=== PATIENT | male | born 1940 | race Caucasian/White ===

== ENCOUNTER → 2016-12-13 | Outpatient (CLI) | payer MEDICARE, OTHER | END | disposition home or self-care (01) | LOC: LABWHC1 13:13 | PROVIDERS: ATTEND Psychiatry & Neurology Neurology | DX: G12.20 Motor neuron disease, unspecified (principal) | CPT/HCPCS: 36415; 84165 ==

== ENCOUNTER → 2017-01-18 | Outpatient (CLI) | payer MEDICARE, OTHER ==
--- NOTE | 2017-01-18 18:21 | XR ---
EXAMINATION TYPE: XR bone survey complete DATE OF EXAM: 01/18/2017 9:48 AM COMPARISON: NONE HISTORY: Monoclonal gammopathy TECHNIQUE: Multiple images were obtained. FINDINGS: Frontal chest: Pacemaker overlies left chest. Lung wang are clear. Ribs appear unremarkable. Lung f ields are clear. Cervical spine, 2 view: Degenerative disc changes are present C3-C4 C5-6. Prevertebral space is alyse l. Posterior spinal lamellar line is intact. Facet changes are present. Carotid bifurcation calcifica tion is noted. Right humerus: There is a sclerotic well marginated area within the proximal diaphysis. There is some areas of moth-eaten lytic areas within the proximal diaphysis and greater tuberosity of the right hu merus. Left humerus appears normal. 2 view skull: 2 lytic areas are within the left occipital region. An additional subtle parietal lucen cy may be within the midportion Thoracic spine: There are 12 thoracic type vertebral bodies. Pedicles are intact. Mild spondylosis w ithin the thoracic spine. Lumbar spine, 2 view: There 5 lumbar-type vertebral bodies. The pedicles are intact. Mild disc space narrowing is present L3-4 L4-5 posteriorly. Femurs: Femurs are examined in 2 views. No suspicious lytic or sclerotic lesions are evident. Joint s paces are preserved Pelvis: Single AP view pelvis is obtained which is unremarkable. IMPRESSION: 1. There are couple of suspicious lytic areas within the left occipital region. An additional area m ay be within the parietal bone on the lateral view skull. 2. Possible moth-eaten lytic area within the proximal diaphysis right humerus and humeral head.
== END | disposition home or self-care (01) ==
LOC: RADXRMAIN 09:03
PROVIDERS: ATTEND Internal Medicine Hematology & Oncology
DX: D47.2 Monoclonal gammopathy (principal); E78.5 Hyperlipidemia, unspecified; G12.21 Amyotrophic lateral sclerosis; I10 Essential (primary) hypertension
CPT/HCPCS: 77075

== ENCOUNTER 2019-02-21 09:35 | Emergency (ER) | payer MEDICARE, OTHER ==
--- NOTE | 2019-02-21 11:34 | ED ---
General Adult HPI - General Chief complaint: Syncope Stated complaint: syncope Time Seen by Provider: 02/21/19 10:52 Source: patient, RN notes reviewed Mode of arrival: wheelchair Limitations: no limitations - History of Present Illness Initial comments: Patient is a pleasant 78-year-old male presenting to the emergency Department with following an episode of falling. No injury occurred. Patient does not believe he lost consciousness. Patient states he was in the kitchen and turned around and started walking just dropped. Patient did have a similar episode years ago and was found to need a pacemaker that time. Patient is currently symptom-free. Patient has been diagnosed with Parkinson's and has recently seen a neurologist. 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 No headache or confusion. No isolated area of weakness. No chest pain or dyspnea. No abdomin al or back pain. - Related Data Home Medications Medication Instructions Recorded Confirmed Ascorbic Acid [Vitamin C] 1,000 mg PO DAILY 02/21/19 02/21/19 Carbidopa-Levodopa 25-100 mg 1.5 tab PO TID 02/21/19 02/21/19 [Sinemet 25-100] Donepezil HCl [Aricept] 10 mg PO DAILY 02/21/19 02/21/19 Metoprolol Succinate (ER) [Toprol 50 mg PO DAILY 02/21/19 02/21/19 Xl] Multivitamins, Thera [Multivitamin 1 tab PO DAILY 02/21/19 02/21/19 (formulary)] Riluzole [Rilutek] 100 mg PO DAILY 02/21/19 02/21/19 Simvastatin 40 mg PO DAILY 02/21/19 02/21/19 Tamsulosin HCl [Flomax] 0.4 mg PO DAILY 02/21/19 02/21/19 Allergies Allergy/AdvReac Type Severity Reaction Status Date / Time No Known Allergies Allergy Verified 02/21/19 11:14 Review of Systems ROS Statement: Those systems with pertinent positive or pertinent negative responses have been documented in the HPI. ROS Other: All systems not noted in ROS Statement are negative. Constitutional: Denies: fever Eyes: Denies: eye pain ENT: Denies: ear pain Respiratory: Denies: cough, dyspnea Cardiovascular: Denies: chest pain Endocrine: Denies: fatigue Gastrointestinal: Denies: abdominal pain Genitourinary: Denies: dysuria Musculoskeletal: Denies: back pain Skin: Denies: rash Neurological: Denies: headache, weakness, confusion Past Medical History Past Medical History: Hyperlipidemia, Hypertension Additional Past Medical History / Comment(s): PARKINSONS, ALS. History of Any Multi-Drug Resistant Organisms: None Reported Past Surgical History: Appendectomy, Cholecystectomy, Pacemaker Past Psychological History: No Psychological Hx Reported Smoking Status: Never smoker Past Alcohol Use History: Occasional Past Drug Use History: None Reported General Exam Limitations: no limitations General appearance: alert, in no apparent distress Head exam: Present: atraumatic, normocephalic Eye exam: Present: normal appearance, PERRL, EOMI. Absent: nystagmus ENT exam: Present: normal oropharynx Neck exam: Present: normal inspection. Absent: tenderness Respiratory exam: Present: normal lung sounds bilaterally Cardiovascular Exam: Present: regular rate, normal rhythm GI/Abdominal exam: Present: soft. Absent: tenderness Extremities exam: Present: normal inspection. Absent: pedal edema, calf tenderness Neurological exam: Present: alert, oriented X3, CN II-XII intact. Absent: motor sensory deficit Expanded Neurological exam: Present: protecting the airway Patient oriented to: Present: person, place, time Speech: Present: fluid speech Cranial nerves: EOM's Intact: Normal, Facial Sensation: Normal Sensory exam: Upper Extremity Light Touch: Normal, Lower Extremity Light Touch: Normal Motor strength exam: RUE: 5, LUE: 5, RLE: 5, LLE: 5 Eye Response: (4) open spontaneously Motor Response: (6) obeys commands Verbal Response: (5) oriented Psychiatric exam: Present: normal affect, normal mood Skin exam: Present: normal color Course Vital Signs 02/21/19 02/21/19 02/21/19 09:46 11:56 12:00 Temperature 98.2 F Pulse Rate 60 62 60 Respiratory 16 16 12 Rate Blood Pressure 92/57 O2 Sat by Pulse 98 Oximetry 02/21/19 02/21/19 13:00 14:00 Temperature Pulse Rate 60 60 Respiratory 16 15 Rate Blood Pressure 127/89 O2 Sat by Pulse Oximetry EKG Findings - EKG Comments: EKG Findings:: Paced rhythm at 60. MT 168. QRS 82. QT 416. QTc 416. Normal axis. Normal QRS. No acute ST change. Medical Decision Making - Medical Decision Making Patient reevaluated and resting comfortably in bed. Patient and family updated on results. Patient offered admission however patient and family both refuses. They state they do appointment next week with cardiology. They will keep. Patient also has an appointment with the neurologist and will bring a copy of the CD with him. - Lab Data Result diagrams: 02/21/19 11:11 02/21/19 11:11 Lab Results 02/21/19 02/21/19 02/21/19 Range/Units 11:11 11:11 11:11 WBC 7.3 (3.8-10.6) k/uL RBC 4.02 L (4.30-5.90) m/uL Hgb 12.8 L (13.0-17.5) gm/dL Hct 40.0 (39.0-53.0) % MCV 99.5 (80.0-100.0) fL MCH 31.7 (25.0-35.0) pg MCHC 31.9 (31.0-37.0) g/dL RDW 12.6 (11.5-15.5) % Plt Count 214 (150-450) k/uL Neutrophils % 52 % Lymphocytes % 39 % Monocytes % 5 % Eosinophils % 2 % Basophils % 1 % Neutrophils # 3.8 (1.3-7.7) k/uL Lymphocytes # 2.8 (1.0-4.8) k/uL Monocytes # 0.4 (0-1.0) k/uL Eosinophils # 0.1 (0-0.7) k/uL Basophils # 0.0 (0-0.2) k/uL PT 10.2 (9.0-12.0) sec INR 0.9 (<1.2) APTT 22.1 (22.0-30.0) sec Sodium 140 (137-145) mmol/L Potassium 4.1 (3.5-5.1) mmol/L Chloride 104 (98-107) mmol/L Carbon Dioxide 29 (22-30) mmol/L Anion Gap 7 mmol/L BUN 18 (9-20) mg/dL Creatinine 1.28 H (0.66-1.25) mg/dL Est GFR (CKD-EPI)AfAm 63 (>60 ml/min/1.73 sqM) Est GFR (CKD-EPI)NonAf 54 (>60 ml/min/1.73 sqM) Glucose 105 H (74-99) mg/dL Calcium 9.2 (8.4-10.2) mg/dL Total Bilirubin 0.5 (0.2-1.3) mg/dL AST 44 (17-59) U/L ALT 20 L (21-72) U/L Alkaline Phosphatase 60 (38-126) U/L Troponin I (0.000-0.034) ng/mL Total Protein 8.3 H (6.3-8.2) g/dL Albumin 4.3 (3.5-5.0) g/dL 02/21/19 Range/Units 11:11 WBC (3.8-10.6) k/uL RBC (4.30-5.90) m/uL Hgb (13.0-17.5) gm/dL Hct (39.0-53.0) % MCV (80.0-100.0) fL MCH (25.0-35.0) pg MCHC (31.0-37.0) g/dL RDW (11.5-15.5) % Plt Count (150-450) k/uL Neutrophils % % Lymphocytes % % Monocytes % % Eosinophils % % Basophils % % Neutrophils # (1.3-7.7) k/uL Lymphocytes # (1.0-4.8) k/uL Monocytes # (0-1.0) k/uL Eosinophils # (0-0.7) k/uL Basophils # (0-0.2) k/uL PT (9.0-12.0) sec INR (<1.2) APTT (22.0-30.0) sec Sodium (137-145) mmol/L Potassium (3.5-5.1) mmol/L Chloride (98-107) mmol/L Carbon Dioxide (22-30) mmol/L Anion Gap mmol/L BUN (9-20) mg/dL Creatinine (0.66-1.25) mg/dL Est GFR (CKD-EPI)AfAm (>60 ml/min/1.73 sqM) Est GFR (CKD-EPI)NonAf (>60 ml/min/1.73 sqM) Glucose (74-99) mg/dL Calcium (8.4-10.2) mg/dL Total Bilirubin (0.2-1.3) mg/dL AST (17-59) U/L ALT (21-72) U/L Alkaline Phosphatase (38-126) U/L Troponin I <0.012 (0.000-0.034) ng/mL Total Protein (6.3-8.2) g/dL Albumin (3.5-5.0) g/dL - Radiology Data Radiology results: report reviewed (Computed tomography scan of the brain reveals no acute process), image reviewed (This x-ray shows no acute process) Disposition Clinical Impression: Near syncope Disposition: HOME SELF-CARE Condition: Stable Instructions (If sedation given, give patient instructions): Near Syncope (ED) Additional Instructions: Please do follow-up with primary care physician in the next day or 2 for recheck. Return for increased falls, passing out, worsening or changing symptoms or other concerns. Is patient prescribed a controlled substance at d/c from ED?: No Referrals: Ben Arriaga III, MD [Primary Care Provider] - 1-2 days Time of Disposition: 15:17
[2019-02-21 11:55] LABS: Basophils % (A) 1 %; Eosinophils # (A) 0.1 k/uL (0-0.7); Eosinophils % (A) 2 %; HGB 12.8 gm/dL (13.0-17.5); Lymphocytes # (A) 2.8 k/uL (1.0-4.8); Lymphocytes % (A) 39 %; MCH 31.7 pg (25.0-35.0); MCHC 31.9 g/dL (31.0-37.0); MCV 99.5 fL (80.0-100.0); Monocytes # (A) 0.4 k/uL (0-1.0); Monocytes % (A) 5 %; Neutrophils # (A) 3.8 k/uL (1.3-7.7); Neutrophils % (A) 52 %; Platelet Count 214 k/uL (150-450); RBC 4.02 m/uL (4.30-5.90); RDW 12.6 % (11.5-15.5); WBC 7.3 k/uL (3.8-10.6)
[2019-02-21 12:14] LABS: INR 0.9 (<1.2); Partial Thromboplastin Time 22.1 sec (22.0-30.0); Prothrombin Time 10.2 sec (9.0-12.0)
[2019-02-21 12:15] LABS: Albumin 4.3 g/dL (3.5-5.0); Calcium 9.2 mg/dL (8.4-10.2); Potassium 4.1 mmol/L (3.5-5.1); Total Bilirubin 0.5 mg/dL (0.2-1.3); Total Protein 8.3 g/dL (6.3-8.2)
--- NOTE | 2019-02-21 12:31 | XR ---
EXAMINATION TYPE: XR chest 2V DATE OF EXAM: 02/21/2019 HISTORY: syncope. REFERENCE: NONE. FINDINGS: There is a bipolar pacemaker in place on the left. The lungs are clear. Pleural space are clear. The heart is not enlarged. IMPRESSION: NO ACTIVE INTRATHORACIC DISEASE.
--- NOTE | 2019-02-21 13:02 | CT ---
EXAMINATION TYPE: CT brain wo con DATE OF EXAM: 02/21/2019 COMPARISON: Previous study dated 03/21/2016 HISTORY: syncope CT DLP: 1108.4 mGycm Automated exposure control for dose reduction was used. FINDINGS: There are mild, generalized changes of sulcal prominence and ventriculomegaly, compatible with atroph ic change. There is diffuse periventricular white matter lucency, compatible with small vessel ischem ic change. There is no acute focal lesion, mass effect or midline shift identified. I do not see evid ence of intracranial blood. There is chronic mucoperiosteal thickening involving the left maxillary sinus as well as the ethmoid sinuses. The mastoids are clear. The bony calvarium is intact. IMPRESSION: 1. NO ACUTE INTRACRANIAL ABNORMALITY. 2. DEGENERATIVE CHANGE. 3. 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
[2019-02-21 15:27] VITALS: BP 164/93; PULSE 85; RESP 18; TEMP 97.6
== END 2019-02-21 15:27 | disposition home or self-care (01) ==
LOC: EC 09:35
DX: R55 Syncope and collapse (principal); E78.5 Hyperlipidemia, unspecified; I10 Essential (primary) hypertension; G20 Parkinson's disease; Z95.0 Presence of cardiac pacemaker; Z53.29 Procedure and treatment not carried out because of patient's decision for other reasons; Z53.8 Procedure and treatment not carried out for other reasons; Z79.899 Other long term (current) drug therapy
CPT/HCPCS: 36415; 70450; 71046; 80053; 84484; 85025; 85610; 85730; 93005; 99284

== ENCOUNTER 2019-12-15 06:57 | Inpatient (IN) | payer MEDICARE, OTHER ==
[2019-12-15] MEDS ORDERED: SODIUM CHLORIDE 0.9% 1,000 ML IV STA (07:33)
--- NOTE | 2019-12-15 07:38 | ED ---
Dizziness HPI - General Source: patient, EMS, RN notes reviewed, old records reviewed Mode of arrival: EMS Limitations: altered mental status <Sienna Hopkins - Last Filed: 12/15/19 09:24> <Jeronimo Gill - Last Filed: 12/15/19 11:12> - General Chief Complaint: Syncope Stated Complaint: AFIB, syncope Time Seen by Provider: 12/15/19 07:24 - History of Present Illness Initial Comments: This Patient is a 78-year-old male with a history of Parkinson's and ALS. He has history of a pacemaker as well. He presents today with his for multiple single episodes with standing, concern for some orthostatic hypotension. Patient's runs in bed today and he is a complaining of sense of chest pain. reports that he was white and diaphoretic. She called EMS for initially concern for low blood pressure. When EMS arrived blood pressure was normalized at 120/80 but was in Afib with heart rate between 120-140bpm. and EMS attempted to get the Patient out of bed and onto the stretcher he had a syncopal episode. He had no head injury or any injury related to the single episode with EMS there. Patient complains of no headache, he denies any chest pain or shortness of breath at this time. He states that he is just been generally weak. His reports that he does not drink fluids often. They also state that he is likely due for a battery replacement on his pacemaker. 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 reports that he has some dementia and delusions at times. (Sienna Hopkins) - Related Data Home Medications Medication Instructions Recorded Confirmed Carbidopa-Levodopa 25-100 mg 1 tab PO TID 02/21/19 12/15/19 [Sinemet 25-100] Donepezil HCl [Aricept] 10 mg PO DAILY 02/21/19 12/15/19 Metoprolol Succinate (ER) [Toprol 25 mg PO DAILY 02/21/19 12/15/19 Xl] Riluzole [Rilutek] 100 mg PO DAILY 02/21/19 12/15/19 Simvastatin 40 mg PO DAILY 02/21/19 12/15/19 Tamsulosin HCl [Flomax] 0.4 mg PO DAILY 02/21/19 12/15/19 Levothyroxine Sodium 25 mcg PO DAILY 12/15/19 12/15/19 Allergies Allergy/AdvReac Type Severity Reaction Status Date / Time No Known Allergies Allergy Verified 12/15/19 09:51 Review of Systems ROS Other: All systems not noted in ROS Statement are negative. <Oneyda Hopkinsily - Last Filed: 12/15/19 09:24> ROS Other: All systems not noted in ROS Statement are negative. <Jeronimo Gill - Last Filed: 12/15/19 11:12> ROS Statement: Those systems with pertinent positive or pertinent negative responses have been documented in the HPI. Past Medical History Past Medical History: Dementia, Hyperlipidemia, Hypertension Additional Past Medical History / Comment(s): PARKINSONS, ALS. History of Any Multi-Drug Resistant Organisms: None Reported Past Surgical History: Appendectomy, Cholecystectomy, Pacemaker Past Psychological History: No Psychological Hx Reported Smoking Status: Never smoker Past Alcohol Use History: Occasional Past Drug Use History: None Reported <Oneyda Hopkinsily - Last Filed: 12/15/19 09:24> General Exam Limitations: altered mental status General appearance: alert, in no apparent distress Head exam: Present: atraumatic, normocephalic, normal inspection Eye exam: Present: normal appearance, PERRL, EOMI. Absent: scleral icterus, conjunctival injection, periorbital swelling ENT exam: Present: normal exam, mucous membranes moist Neck exam: Present: normal inspection. Absent: tenderness, meningismus, lymphadenopathy Respiratory exam: Present: normal lung sounds bilaterally. Absent: respiratory distress, wheezes, rales, rhonchi, stridor Cardiovascular Exam: Present: regular rate, normal rhythm, normal heart sounds. Absent: systolic murmur, diastolic murmur, rubs, gallop, clicks GI/Abdominal exam: Present: soft, normal bowel sounds. Absent: distended, tenderness, guarding, rebound, rigid Extremities exam: Present: normal inspection, full ROM, normal capillary refill. Absent: tenderness, pedal edema, joint swelling, calf tenderness Back exam: Present: normal inspection Neurological exam: Present: alert, oriented X3, CN II-XII intact Psychiatric exam: Present: normal affect, normal mood Skin exam: Present: warm, dry, intact, normal color. Absent: rash <Oneyda Hopkinsily - Last Filed: 04/14/20 09:24> - General Exam Comments Initial Comments: 78-year-old male. Resting comfortably in bed. No Distress. (SandeepSienna) Course <Sienna Hopkins - Last Filed: 12/15/19 09:24> Vital Signs 12/15/19 12/15/19 12/15/19 06:59 07:30 08:00 Temperature 97.8 F Pulse Rate 71 71 65 Respiratory 18 18 18 Rate Blood Pressure 121/65 121/65 105/60 O2 Sat by Pulse 98 98 98 Oximetry 12/15/19 12/15/19 12/15/19 08:30 09:25 10:27 Temperature Pulse Rate 60 65 68 Respiratory 18 18 18 Rate Blood Pressure 116/61 106/62 114/64 O2 Sat by Pulse 99 99 98 Oximetry - Reevaluation(s) Reevaluation #1: 12/15/19 07:41 Pacemaker was interpreted. awaiting report. (SandeepSienna) EKG Findings - EKG Comments: EKG Findings:: EKG performed at 701 shows normal sinus rhythm and normal EKG. Ventricular rate of 60 beats were minute. ME interval is 134 ms. She alevism is 76 most seconds. QT QTc is 396/421 ms. <Sienna Hopkins - Last Filed: 12/15/19 09:24> Medical Decision Making - Lab Data Result diagrams: 12/15/19 07:10 12/15/19 07:10 - Radiology Data Radiology results: report reviewed <MonalisajuneSienna sanchez - Last Filed: 12/15/19 09:24> - Lab Data Result diagrams: 12/15/19 07:10 12/15/19 07:10 <Jeronimo Gill - Last Filed: 12/15/19 11:12> - Medical Decision Making 78-year-old male presents emergency department today with Elaine Leno syncopal episodes. He had a single episode this morning upon awakening and was diaphoretic and his heart rate was fluctuating. Patient does have a pacemaker and this was placed by Dr. Koo. At this time Patient denies any specific chest pain. His does report that he complained about chest pain earlier today. Patient's labwork was reviewed. Evidence of mildly elevated troponin of 0.056. We also had his pacemaker interpreted [employer]. This is placed on patient's file. At 4 AM there is noted to be a 2 hour and 40 minutes episode of high heart rates with the max being 192 bpm. Patient family was informed of these results and Patient was placed on heparin at this time. Patient's does note that she he does have a history of some dementia and occasional altered mental status and delusions consistent with his Parkinson's and ALS disease. Discussed case with Dr. Gill. (Sienna Hopkins) Patient reevaluated and reexamined by myself, Dr. Gill. Patient resting comfortably in bed, symptom-free at this time. Majority of history taken from spouse. Radial and pedal pulses 2/4 bilateral. Heart regular rate and rhythm without murmur. Patient and family are updated on results and plan. Dr. Sue has been paged for admission, covering for Dr. Arriaga. Cardiology will be placed on consult. I do agree with PAs findings. This includes diagnostic i nterpretation and treatment plan. Case was discussed with Dr. Sue, who will admit. (Jeronimo Gill) - Lab Data Lab Results 12/15/19 12/15/19 12/15/19 Range/Units 07:10 07:10 07:10 WBC 10.0 (3.8-10.6) k/uL RBC 3.66 L (4.30-5.90) m/uL Hgb 12.0 L (13.0-17.5) gm/dL Hct 36.0 L (39.0-53.0) % MCV 98.5 (80.0-100.0) fL MCH 32.7 (25.0-35.0) pg MCHC 33.2 (31.0-37.0) g/dL RDW 12.5 (11.5-15.5) % Plt Count 167 (150-450) k/uL Neutrophils % 83 % Lymphocytes % 13 % Monocytes % 3 % Eosinophils % 0 % Basophils % 0 % Neutrophils # 8.3 H (1.3-7.7) k/uL Lymphocytes # 1.3 (1.0-4.8) k/uL Monocytes # 0.3 (0-1.0) k/uL Eosinophils # 0.0 (0-0.7) k/uL Basophils # 0.0 (0-0.2) k/uL PT 10.2 (9.0-12.0) sec INR 1.0 (<1.2) APTT 20.8 L (22.0-30.0) sec D-Dimer 0.45 (<0.60) mg/L FEU Sodium 137 (137-145) mmol/L Potassium 4.5 (3.5-5.1) mmol/L Chloride 105 (98-107) mmol/L Carbon Dioxide 24 (22-30) mmol/L Anion Gap 8 mmol/L BUN 21 H (9-20) mg/dL Creatinine 1.24 (0.66-1.25) mg/dL Est GFR (CKD-EPI)AfAm 65 (>60 ml/min/1.73 sqM) Est GFR (CKD-EPI)NonAf 57 (>60 ml/min/1.73 sqM) Glucose 122 H (74-99) mg/dL Calcium 8.9 (8.4-10.2) mg/dL Magnesium 2.1 (1.6-2.3) mg/dL Total Bilirubin 1.0 (0.2-1.3) mg/dL AST 42 (17-59) U/L ALT 30 (4-49) U/L Alkaline Phosphatase 58 (38-126) U/L Troponin I (0.000-0.034) ng/mL Total Protein 8.1 (6.3-8.2) g/dL Albumin 4.0 (3.5-5.0) g/dL 12/15/19 Range/Units 07:10 WBC (3.8-10.6) k/uL RBC (4.30-5.90) m/uL Hgb (13.0-17.5) gm/dL Hct (39.0-53.0) % MCV (80.0-100.0) fL MCH (25.0-35.0) pg MCHC (31.0-37.0) g/dL RDW (11.5-15.5) % Plt Count (150-450) k/uL Neutrophils % % Lymphocytes % % Monocytes % % Eosinophils % % Basophils % % Neutrophils # (1.3-7.7) k/uL Lymphocytes # (1.0-4.8) k/uL Monocytes # (0-1.0) k/uL Eosinophils # (0-0.7) k/uL Basophils # (0-0.2) k/uL PT (9.0-12.0) sec INR (<1.2) APTT (22.0-30.0) sec D-Dimer (<0.60) mg/L FEU Sodium (137-145) mmol/L Potassium (3.5-5.1) mmol/L Chloride (98-107) mmol/L Carbon Dioxide (22-30) mmol/L Anion Gap mmol/L BUN (9-20) mg/dL Creatinine (0.66-1.25) mg/dL Est GFR (CKD-EPI)AfAm (>60 ml/min/1.73 sqM) Est GFR (CKD-EPI)NonAf (>60 ml/min/1.73 sqM) Glucose (74-99) mg/dL Calcium (8.4-10.2) mg/dL Magnesium (1.6-2.3) mg/dL Total Bilirubin (0.2-1.3) mg/dL AST (17-59) U/L ALT (4-49) U/L Alkaline Phosphatase (38-126) U/L Troponin I 0.057 H* (0.000-0.034) ng/mL Total Protein (6.3-8.2) g/dL Albumin (3.5-5.0) g/dL 12/15/19 09:26 Second tube EKG performed at 8:50 AM showed normal sinus rhythm and normal EKG. Ventricular rate of 63 beats were minute. Pulse 150 ms. Respirations 70 ms. QT QTc is 414/423 ms. (Sienna Hopkins) - Radiology Data Chest x-ray is negative for any acute cardiac pulmonary process. (Sienna Hopkins) Disposition Is patient prescribed a controlled substance at d/c from ED?: No Time of Disposition: 09:28 <Sienna Hopkins - Last Filed: 12/15/19 09:24> <Jeronimo Gill - Last Filed: 12/15/19 11:12> Clinical Impression: Syncope, Elevated troponin Disposition: HOME SELF-CARE Condition: Good Referrals: None,Stated [REFERRING] - 1-2 days
[2019-12-15] MEDS: SODIUM CHLORIDE 0.9% 1,000 ML IV STA ×2 (07:42→17:51)
[2019-12-15 07:54] LABS: Basophils % (A) 0 %; Eosinophils % (A) 0 %; Lymphocytes # (A) 1.3 k/uL (1.0-4.8); Lymphocytes % (A) 13 %; MCH 32.7 pg (25.0-35.0); MCHC 33.2 g/dL (31.0-37.0); MCV 98.5 fL (80.0-100.0); Mean Platelet Volume 8.9; Monocytes # (A) 0.3 k/uL (0-1.0); Monocytes % (A) 3 %; Neutrophils # (A) 8.3 k/uL (1.3-7.7); Neutrophils % (A) 83 %; Platelet Count 167 k/uL (150-450); RBC 3.66 m/uL (4.30-5.90); RDW 12.5 % (11.5-15.5)
--- NOTE | 2019-12-15 08:06 | XR ---
EXAMINATION TYPE: XR chest 2V DATE OF EXAM: 12/15/2019 COMPARISON: 02/19/2019 TECHNIQUE: PA and lateral views submitted. HISTORY: Syncope FINDINGS: The lungs are clear and there is no pneumothorax, pleural effusion, or focal pneumonia. Cardiac dev ice noted. No overt failure. Arthropathy of the shoulders. Hypertrophic and degenerative change of th e spine. Underlying COPD suggested. IMPRESSION: 1. No acute process.
[2019-12-15 08:09] LABS: Calcium 8.9 mg/dL (8.4-10.2); Magnesium 2.1 mg/dL (1.6-2.3); Total Protein 8.1 g/dL (6.3-8.2)
[2019-12-15 08:18] LABS: Potassium 4.5 mmol/L (3.5-5.1)
[2019-12-15 08:32] LABS: D-Dimer 0.45 mg/L FEU (<0.60); Partial Thromboplastin Time 20.8 sec (22.0-30.0); Prothrombin Time 10.2 sec (9.0-12.0)
[2019-12-15] MEDS ORDERED: ASPIRIN 81 MG PO STA (09:03)
[2019-12-15] MEDS ORDERED: MORPHINE SULFATE 4 MG/ML SYRINGE IV PRN (09:29)
[2019-12-15] MEDS ORDERED: HEPARIN SODIUM,PORCINE 5,000 UNIT/ML 1 ML VIAL IV ONE (09:29)
[2019-12-15] MEDS ORDERED: NITROGLYCERIN SL TABS 0.4 MG TAB SUBLINGUAL PRN (09:29)
[2019-12-15] MEDS: HEPARIN SOD,PORK IN 0.45% NACL 25,000 UNIT in 0.45% NACL 1 250ML.BAG IV SCH (10:23)
[2019-12-15 12:14] LABS: Appearance,Urine Clear (Clear); Bilirubin,Urine Negative (Negative); Blood,Urine Trace (Negative); Color,Urine Yellow; Glucose,Urine (UA) Negative (Negative); Hyaline Casts,Urine 7 /lpf (0-2); Ketones,Urine Trace (Negative); Leukocyte Esterase,Urine Negative (Negative); Mucus,Urine Moderate /hpf; Nitrite,Urine Negative (Negative); PH, Urine 5.5 (5.0-8.0); Protein,Urine Trace (Negative); RBC,Urine <1 /hpf (0-5); Specific Gravity,Urine 1.022 (1.001-1.035); Urobilinogen,Urine <2.0 mg/dL (<2.0); WBC,Urine 2 /hpf (0-5)
[2019-12-15] MEDS: CARBIDOPA-LEVODOPA 25-100 MG 1 EACH TAB PO SCH ×2 (13:49→17:49)
[2019-12-15] MEDS: LEVOTHYROXINE 25 MCG TAB PO SCH (13:49)
--- NOTE | 2019-12-15 14:47 | P.CRDCN ---
History of Present Illness Consult date: 12/15/19 Consult reason: sycope Chief complaint: Syncope History of present illness: This is a pleasant 78-year-old gentleman who follows with Dr. Lennon in the office. He has a known history of ALS, Parkinson's disease, sick sinus syndrome status post permanent pacemaker, hypertension, hyperlipidemia, dementia. The EMS notes were reviewed as was the EKG be performed by EMS which showed atrial fibrillation with a rapid ventricular response.. He has a visit with Dr. Koo's PA on December 03, was done via telemetry medicine because of the londono virus. Patient was instructed at that time to return in 3 months for an office visit and prior to that the device would be checked in 4 weeks to check the battery status of his pacemaker. His was also instructed that the patient had any dizziness or syncopal episodes related to low blood pressure that the dose of beta shy would be adjusted. Patient does present to the hospital on this occasion with multiple syncopal episodes of syncope while standing. On this occasion according to the documentation in the emergency room note, patient was complaining of some chest pain, he was white and diaphoretic. She called EMS with concern because the patient's blood pressure was low. When EMS arrived the blood pressure was normal at 120/80 but the patient went into atrial fibrillation with a heart rate of 120-140. At that time patient had no complaints of headache, no chest pain, no shortness of breath. Patient does state that he has intermittent dizzy spells and also states that he has not been drinking enough water at home. EMS notes were reviewed, as well as EKG performed by EMS which showed atrial fibrillation with rapid ventricular respo nse. On arrival here the patient's initial EKG showed a normal sinus rhythm with nonspecific ST-T wave changes in the anterior leads. The pacemaker was interrogated there were no device or lead performance issues observed. The battery status, estimated remaining longevity based on past history one month or less then 1-10 months. Patient did have 3 episodes of rapid atrial arrhythmias according to the device interrogation no significant pauses documented. Chest x-ray did not reveal any acute process. Blood pressure 116/70 with a heart rate in the 70s. Laboratory data was reviewed white blood cell count 10.0, hemoglobin 12.0, platelet count 167. D-dimer 0.45. Sodium 137, potassium 4.5, BUN 21, creatinine 1.2. And 2.1, troponin 0.057. At the time of my examination, patient is quite comfortable, he denies any dizziness or lightheadedness, no palpitations. He is very slow to speak, likely from the Parkinson's, but ultimately does answer his questions appropriately. Past Medical History Past Medical History: Dementia, Hyperlipidemia, Hypertension Additional Past Medical History / Comment(s): PARKINSONS, ALS. History of Any Multi-Drug Resistant Organisms: None Reported Past Surgical History: Appendectomy, Cholecystectomy, Pacemaker Type of Cardiac Device: Permanent Pacemaker, AICD Device Placement Date:: 2010 Past Psychological History: No Psychological Hx Reported Smoking Status: Never smoker Past Alcohol Use History: Occasional Past Drug Use History: None Reported - Past Family History Mother Family Medical History: Dementia Father Family Medical History: Dementia Medications and Allergies Home Medications Medication Instructions Recorded Confirmed Type Carbidopa-Levodopa 25-100 mg 1 tab PO TID 02/21/19 12/15/19 History [Sinemet 25-100] Donepezil HCl [Aricept] 10 mg PO DAILY 02/21/19 12/15/19 History Metoprolol Succinate (ER) [Toprol 25 mg PO DAILY 02/21/19 12/15/19 History Xl] Riluzole [Rilutek] 100 mg PO DAILY 02/21/19 12/15/19 History Simvastatin 40 mg PO DAILY 02/21/19 12/15/19 History Tamsulosin HCl [Flomax] 0.4 mg PO DAILY 02/21/19 12/15/19 History Levothyroxine Sodium 25 mcg PO DAILY 12/15/19 12/15/19 History Allergies Allergy/AdvReac Type Severity Reaction Status Date / Time No Known Allergies Allergy Verified 12/15/19 09:51 Physical Exam Vitals: Vital Signs Temp Pulse Resp BP Pulse Ox 12/15/19 13:05 98.0 F 70 16 115/65 98 12/15/19 11:55 97.9 F 65 18 110/63 98 12/15/19 11:30 67 18 97 12/15/19 11:00 63 18 116/68 98 12/15/19 10:30 63 18 114/64 97 12/15/19 10:27 68 18 114/64 98 12/15/19 10:00 64 18 106/60 98 12/15/19 09:30 61 18 106/62 97 12/15/19 09:25 65 18 106/62 99 12/15/19 09:00 63 18 109/56 98 12/15/19 08:30 60 18 116/61 99 12/15/19 08:00 65 18 105/60 98 12/15/19 07:30 71 18 121/65 98 12/15/19 06:59 97.8 F 71 18 121/65 98 Intake and Output 12/14/19 12/15/19 12/15/19 22:59 06:59 14:59 Other: # Voids 1 Weight 66.678 kg 66.678 kg PHYSICAL EXAMINATION: GENERAL: 78-year-old gentleman in no acute distress at the time of my examination HEENT: Head is atraumatic, normocephalic. Pupils equal, round. Sclera anicteric. Conjunctiva are clear. Mucous membranes of the mouth are moist. Neck is supple. There is no elevated jugular venous pressure. No carotid bruit is heard. HEART EXAMINATION: Heart S1, S2 normal. No murmur or gallop heard. CHEST EXAMINATION: Lungs are clear to auscultation and precussion. No chest wall tenderness is noted on palpation or with deep breathing. ABDOMEN: Soft, nontender. Bowel sounds are heard. No organomegaly noted. EXTREMITIES: 2+ peripheral pulses with no evidence of peripheral edema and no calf tenderness noted. NEUROLOGIC patient is awake, alert and oriented 2 . Speech is very delayed and slow . Results 12/16/19 05:19 12/16/19 05:19 Cardiac Enzymes 12/15/19 12/15/19 Range/Units 07:10 07:10 AST 42 (17-59) U/L Troponin I 0.057 H* (0.000-0.034) ng/mL Coagulation 12/15/19 Range/Units 07:10 PT 10.2 (9.0-12.0) sec APTT 20.8 L (22.0-30.0) sec CBC 12/15/19 Range/Units 07:10 WBC 10.0 (3.8-10.6) k/uL RBC 3.66 L (4.30-5.90) m/uL Hgb 12.0 L (13.0-17.5) gm/dL Hct 36.0 L (39.0-53.0) % Plt Count 167 (150-450) k/uL Comprehensive Metabolic Panel 12/15/19 Range/Units 07:10 Sodium 137 (137-145) mmol/L Potassium 4.5 (3.5-5.1) mmol/L Chloride 105 (98-107) mmol/L Carbon Dioxide 24 (22-30) mmol/L BUN 21 H (9-20) mg/dL Creatinine 1.24 (0.66-1.25) mg/dL Glucose 122 H (74-99) mg/dL Calcium 8.9 (8.4-10.2) mg/dL AST 42 (17-59) U/L ALT 30 (4-49) U/L Alkaline Phosphatase 58 (38-126) U/L Total Protein 8.1 (6.3-8.2) g/dL Albumin 4.0 (3.5-5.0) g/dL Current Medications Generic Name Dose Route Start Last Admin Trade Name Freq PRN Reason Stop Dose Admin Ascorbic Acid 1,000 mg 12/16/19 09:00 Vitamin C PO DAILY [facility] Aspirin 325 mg 12/16/19 09:00 Aspirin PO DAILY [facility] Atorvastatin Calcium 20 mg 12/16/19 09:00 Lipitor PO DAILY [facility] Carbidopa/Levodopa 1.5 each 12/15/19 12:30 12/15/19 13:49 Sinemet 25-100 PO 1.5 each AC-TID KANDACE Administration Donepezil HCl 10 mg 12/16/19 09:00 Aricept PO DAILY KANDACE Sodium Chloride 1,000 mls @ 75 mls/hr 12/15/19 07:33 12/15/19 07:42 Saline 0.9% IV 12/15/19 20:52 75 mls/hr .[id number] STA Administration Heparin Sodium/Sodium Chloride 250 mls @ 8.001 mls/hr 12/15/19 09:30 12/15/19 10:23 25,000 unit/ Sodium Chloride IV 12 units/kg/hr .Q24H KANDACE 8.001 mls/hr Administration Protocol 12 UNITS/KG/HR Levothyroxine Sodium 25 mcg 12/15/19 13:15 12/15/19 13:49 Synthroid PO 25 mcg DAILY@0630 KANDACE Administration Metoprolol Succinate 50 mg 12/16/19 09:00 Toprol Xl PO DAILY [facility] Morphine Sulfate 4 mg 12/15/19 09:29 Morphine Sulfate (Inj) IV Q5M PRN Chest Pain Multivitamins 1 each 12/16/19 09:00 Theragran PO DAILY KANDACE Nitroglycerin 0.4 mg 12/15/19 09:29 Nitrostat SUBLINGUAL Q5M PRN Chest Pain Riluzole [Rilutek] 100 mg 12/16/19 09:00 100 Mg PO DAILY KANDACE Tamsulosin HCl 0.4 mg 12/16/19 09:00 Flomax PO DAILY KANDACE Intake and Output 12/14/19 12/15/19 12/15/19 22:59 06:59 14:59 Other: # Voids 1 Weight 66.678 kg 66.678 kg Patient Weight 12/16/19 06:59 Weight 66.678 kg 12/15/19 07:10 12/15/19 07:10 EKG Interpretations (text) Initial EKG on presentation here shows a normal sinus rhythm with ST-T wave changes noted in the anterior leads Assessment and Plan Plan: Assessment and plan #1 syncope, rule out cardiac causes #2 sick sinus syndrome with prior pacemaker implantation. Patient's device was interrogated, shows that the patient's end-of-life for his device is within one month, it does not show any evidence of significant pauses, it did document 3 single episodes of atrial arrhythmias.] #3 atrial fibrillation, paroxysmal, and initial EKG performed by EMS shows atrial fibrillation with rapid ventricular response #4 hypertension #5 hyperlipidemia #6 Parkinson's #7 ALS #8 episode of chest discomfort, rule out acute coronary syndrome. Initial troponin 0.057. EKG shows normal sinus rhythm with ST-T wave changes noted in the anterior leads Plan We will obtain an echocardiogram with Doppler study as well as 2 subsequent t roponins. We will also check a d-dimer to rule out possibility of pulmonary embolism. Check orthostatic heart rate and blood pressure every shift. Continue to monitor the patient for any significant tachycardia or bradycardia arrhythmias. Decrease aspirin to 81 mg daily, decrease the dose of beta shy. IV hydration. Further recommendations to follow. DNP note has been reviewed, I agree with a documented findings and plan of care. Patient was seen and examined.
--- NOTE | 2019-12-15 14:59 | HP ---
HISTORY AND PHYSICAL DATE OF SERVICE: 12/15/2019 CHIEF COMPLAINT: Syncope and sweating. HISTORY OF PRESENT ILLNESS: This is a 78-year-old gentleman with a past medical history of multiple medical problems including dementia, hyperlipidemia, hypertension, history of Parkinson's, ALS, history of appendectomy, cholecystomy being followed by Dr. Arriaga in the outpatient setting was living with his . The saw the patient this morning and the patient was sweating. Patient was less responsive. The patient also complaining of some sense of chest pain. The blood pressure was found to be 60 systolic according to the and the patient taken to [facility] and was admitted for further evaluation and treatment. The heart rate was between 120 to 140. The patient also had pacemaker also. There is no history of fever, chills or rigors, loss of consciousness, seizures. PAST MEDICAL HISTORY: Dementia, hypertension, hyperlipidemia. PAST SURGICAL HISTORY: Appendectomy, cholecystectomy. MEDICATIONS: Prior to admission home medications are: 1. Flomax 0.4 daily. 2. Simvastatin 40 mg p.o. daily. 3. Riluzole 100 mg p.o. daily. 4. Toprol-XL 25 mg p.o. daily. 5. Levothyroxine 25 mcg p.o. daily. 6. Aricept 10 mg p.o. daily. 7. Sinemet 10/100 t.i.d. ALLERGIES: None family history of 2 strokes family. SOCIAL HISTORY: No history of smoking. Occasional alcohol intake. REVIEW OF SYSTEMS: ENT: No diminished vision. CARDIOVASCULAR SYSTEM: As mentioned earlier. GI: No nausea. : No dysuria. NERVOUS SYSTEM: As mentioned earlier. ALLERGY/IMMUNOLOGY: No asthma or hayfever. MUSCULOSKELETAL: As mentioned earlier. HEMATOLOGY: No anemia or hypothyroid: ENDOCRINE: Hypothyroidism. CONSTITUTIONAL: As mentioned earlier. PHYSICAL EXAMINATION: Alert and oriented x3, pulse 65, blood pressure 110/60, respiration 18, temp 97.2, pulse ox 98% on 2 L. HEENT: Normal, no JVD. NECK: Normal CARDIOVASCULAR: S1, S2 muffled. RESPIRATORY: Breath sounds diminished in the bases, a few scattered rhonchi, no crackles.. ABDOMEN: Soft, nontender. No mass palpable legs no edema. NERVOUS SYSTEM: Higher functions as mentioned earlier. Moves all 4 limbs WITH mild diffuse weakness lymphatics. SKIN: No ulcer, no ulcers. JOINTS: No active deforming arthropathy. LABS: WBC 10, hemoglobin is 12. INR is 1 and the BUN is 21, glucose 22, and troponin 0.057. ASSESSMENT: 1. Syncope, hypotension for evaluation, rule out cardiac arrhythmia. 2. Troponin 0.057. Possible acute rcc-QO-hyoxngg-elevation myocardial infarction. 3. Anemia, normocytic anemia of chronic disease. 4. History of ALS. 5. History of Parkinson's. 6. Hypertension. 7. Hyperlipidemia. 8. Appendectomy. 9. Cholecystectomy. 10.Pacemaker. RECOMMENDATION AN DISCUSSION: In this 78-year-old gentleman who presented with multiple complex medications. We will monitor the patient closely, continue with the current management and otherwise resume the home medications. Rule out myocardial infarction, unstable angina protocol, IV fluids. Monitor blood pressure closely. Hold of antihypertensive medications, cardiology consultation, a 2D echo with Doppler. Guarded prognosis because of multiple complex medical issues. A copy of this forwarded to Dr. Arriaga who is the primary physician. MMSAMANTHAL / DANILON: [id number] /
[2019-12-15 16:23] LABS: D-Dimer 0.25 mg/L FEU (<0.60); Partial Thromboplastin Time 92.5 sec (22.0-30.0)
--- NOTE | 2019-12-15 17:54 | ECHOF ---
Referral Reason:mi?? MEASUREMENTS -------- HEIGHT: 167.6 cm WEIGHT: 66.7 kg BP: 115/65 IVSd: 1.2 cm (0.6 - 1.1) LVIDd: 3.2 cm (3.9 - 5.3) LVPWd: 1.2 cm (0.6 - 1.1) IVSs: 1.5 cm LVIDs: 1.8 cm LVPWs: 1.7 cm LAESV Index (A-L): 25.46 ml/m Ao Diam: 3.1 cm (2.0 - 3.7) AV Cusp: 2.2 cm (1.5 - 2.6) MV EXCURSION: 18.221 mm (> 18.000) MV EF SLOPE: 76 mm/s (70 - 150) EPSS: 0.2 cm MV E Harmeet: 0.82 m/s MV DecT: 242 ms MV A Harmeet: 0.63 m/s MV E/A Ratio: 1.29 AR PHT: 1455 ms RAP: 5.00 mmHg RVSP: 29.77 mmHg FINDINGS -------- Sinus rhythm. Pacerwire seen in RV and RA. This was a technically adequate study. The left ventricular size is normal. There is mild concentric left ventricular hypertrophy. Overa ll left ventricular systolic function is normal with, an EF between 55 - 60 %. The diastolic fillin g pattern is normal for the age of the patient 10.32. The right ventricle is normal in size. Normal LA size by volume 22+/-6 ml/m2. The right atrial size is normal. Interatrial and interventricular septum intact. There is mild to moderate aortic valve sclerosis. There is mild aortic regurgitation. There is no evidence of aortic stenosis. The mitral valve leaflets are mildly thickened. Mild mitral regurgitation is present. Mild tricuspid regurgitation present. There is no evidence of pulmonary hypertension. The right v entricular systolic pressure, as measured by Doppler, is 29.77mmHg. There is no pulmonic regurgitation present. The aortic root size is normal. IVC Not well visulized. There is no pericardial effusion. CONCLUSIONS -------- 1. Pacerwire seen in RV and RA. 2. There is mild concentric left ventricular hypertrophy. 3. Overall left ventricular systolic function is normal with, an EF between 55 - 60 %. 4. The diastolic filling pattern is normal for the age of the patient 10.32 5. Normal LA size by volume 22+/-6 ml/m2. 6. There is mild to moderate aortic valve sclerosis. 7. There is mild aortic regurgitation. 8. Mild mitral regurgitation is present. 9. Mild tricuspid regurgitation present. 10. There is no evidence of pulmonary hypertension. RISK INTERN: Torrie Chavez RDCS
[2019-12-16 04:09] VITALS: RESP 16
[2019-12-16 06:40] LABS: Basophils % (A) 0 %; Eosinophils # (A) 0.1 k/uL (0-0.7); Eosinophils % (A) 1 %; HCT 30.7 % (39.0-53.0); Lymphocytes # (A) 1.9 k/uL (1.0-4.8); Lymphocytes % (A) 32 %; MCH 32.8 pg (25.0-35.0); MCHC 32.6 g/dL (31.0-37.0); MCV 100.6 fL (80.0-100.0); Mean Platelet Volume 8.6; Monocytes # (A) 0.3 k/uL (0-1.0); Monocytes % (A) 5 %; Neutrophils # (A) 3.8 k/uL (1.3-7.7); Neutrophils % (A) 62 %; Platelet Count 132 k/uL (150-450); RBC 3.06 m/uL (4.30-5.90); RDW 12.4 % (11.5-15.5); WBC 6.1 k/uL (3.8-10.6)
[2019-12-16 06:45] LABS: Calcium 8.4 mg/dL (8.4-10.2); Potassium 4.1 mmol/L (3.5-5.1)
[2019-12-16] MEDS: CARBIDOPA-LEVODOPA 25-100 MG 1 EACH TAB PO SCH ×3 (06:45→16:47)
[2019-12-16] MEDS: LEVOTHYROXINE 25 MCG TAB PO SCH (06:45)
[2019-12-16] MEDS ORDERED: SODIUM CHLORIDE 0.9% 1,000 ML in EMPTY BAG 1 BAG IV ONE (08:48)
[2019-12-16] MEDS ORDERED: ALPRAZolam 0.25 MG TAB PO PRN (08:48)
[2019-12-16] MEDS ORDERED: ALPRAZolam 0.5 MG TAB PO PRN (08:48)
[2019-12-16] MEDS ORDERED: ASPIRIN 325 MG TAB PO STA (08:48)
[2019-12-16] MEDS ORDERED: ATORVASTATIN 80 MG TAB PO STA (08:48)
[2019-12-16] MEDS ORDERED: NITROGLYCERIN SL TABS 0.4 MG TAB SUBLINGUAL PRN (08:48)
[2019-12-16] MEDS ORDERED: ASPIRIN 325 MG TAB PO SCH (09:00)
[2019-12-16] MEDS ORDERED: METOPROLOL SUCCINATE (ER) 50 MG TAB.ER.24H PO SCH (09:00)
[2019-12-16] MEDS ORDERED: ATORVASTATIN 20 MG TAB PO SCH (09:00)
[2019-12-16] MEDS: METOPROLOL SUCCINATE (ER) 25 MG TAB.ER.24H PO SCH (09:16)
[2019-12-16] MEDS: DONEPEZIL 10 MG TAB PO SCH (09:16)
[2019-12-16] MEDS: ASCORBIC ACID 500 MG TAB PO SCH (09:16)
[2019-12-16] MEDS: MULTIVITAMINS, THERA 1 EACH TAB PO SCH (09:17)
[2019-12-16] MEDS: TAMSULOSIN 0.4 MG CAP.ER.24H PO SCH (09:17)
[2019-12-16] MEDS ORDERED: VERAPAMIL 2.5 MG/ML 2 ML AMP ONE (10:41)
[2019-12-16] MEDS ORDERED: LIDOCAINE 1% INJ 10MG/ML (20 ML MDV) ONE (10:41)
[2019-12-16] MEDS ORDERED: HEPARIN SODIUM 1,000 UN/ML (10ML VL) ONE (10:52)
[2019-12-16] MEDS ORDERED: LIDOCAINE 1% INJ 10MG/ML (20 ML MDV) SQ ONE (10:57)
[2019-12-16] MEDS ORDERED: MIDAZOLAM 2 MG/2 ML VIAL IV ONE (10:58)
[2019-12-16] MEDS: VERAPAMIL SYRINGE (5 MG/10 ML) INTRAARTER ONE ×2 (10:58→11:30)
[2019-12-16] MEDS ORDERED: HEPARIN SODIUM 1,000 UN/ML (10ML VL) IV ONE ×2 (10:59)
[2019-12-16] MEDS: HEPARIN SOD,PORK IN 0.45% NACL 25,000 UNIT in 0.45% NACL 1 250ML.BAG IV SCH (10:59)
[2019-12-16] MEDS ORDERED: IV FLUID CONTINUATION 1,000 ML IV ONE (11:00)
[2019-12-16] MEDS ORDERED: BIVALIRUDIN BOLUS 250 MG/50 ML IV ONE (11:17)
[2019-12-16] MEDS ORDERED: BIVALIRUDIN 250 MG in SODIUM CHLORIDE 0.9% 50 ML IV ONE (11:18)
[2019-12-16] MEDS ORDERED: IOPAMIDOL-370 100ML BTL INJ ONE (11:22)
[2019-12-16] MEDS ORDERED: NITROGLYCERIN 1000MCG/10ML SYRINGE INTRACORON ONE (11:25)
[2019-12-16] MEDS ORDERED: CLOPIDOGREL 75 MG TAB ONE (11:30)
[2019-12-16] MEDS ORDERED: CLOPIDOGREL 75 MG TAB PO ONE (11:31)
[2019-12-16] MEDS ORDERED: IOPAMIDOL-370 50ML BTL INJ ONE (11:31)
--- NOTE | 2019-12-16 11:32 | P.PN ---
Subjective Progress Note Date: 12/16/19 This is a pleasant 78-year-old gentleman who follows with Dr. Lennon in the office. He has a known history of ALS, Parkinson's disease, sick sinus syndrome status post permanent pacemaker, hypertension, hyperlipidemia, dementia. The EMS notes were reviewed as was the EKG be performed by EMS which showed atrial fibrillation with a rapid ventricular response.. He has a visit with Dr. Koo's PA on December 03, was done via telemetry medicine because of the londono virus. Patient was instructed at that time to return in 3 months for an office visit and prior to that the device would be checked in 4 weeks to check the battery status of his pacemaker. His was also instructed that th e patient had any dizziness or syncopal episodes related to low blood pressure that the dose of beta shy would be adjusted. Patient does present to the hospital on this occasion with multiple syncopal episodes of syncope while standing. On this occasion according to the documentation in the emergency room note, patient was complaining of some chest pain, he was white and diaphoretic. She called EMS with concern because the patient's blood pressure was low. When EMS arrived the blood pressure was normal at 120/80 but the patient went into atrial fibrillation with a heart rate of 120-140. At that time patient had no complaints of headache, no chest pain, no shortness of breath. Patient does state that he has intermittent dizzy spells and also states that he has not been drinking enough water at home. EMS notes were reviewed, as well as EKG performed by EMS which showed atrial fibrillation with rapid ventricular response. On arrival here the patient's initial EKG showed a normal sinus rhythm with nonspecific ST-T wave changes in the anterior leads. The pacemaker was interrogated there were no device or lead performance issues observed. The battery status, estimated remaining longevity based on past history one month or less then 1-10 months. Patient did have 3 episodes of rapid atrial arrhythmias according to the device interrogation no significant pauses documented. Chest x-ray did not reveal any acute process. Blood pressure 116/70 with a heart rate in the 70s. Laboratory data was reviewed white blood cell count 10.0, hemoglobin 12.0, platelet count 167. D-dimer 0.45. Sodium 137, potassium 4.5, BUN 21, creatinine 1.2. And 2.1, troponin 0.057. At the time of my examination, patient is quite comfortable, he denies any dizziness or lightheadedness, no palpitations. He is very slow to speak, likely from the Parkinson's, but ultimately does answer his questions appropriately. 12/16/2019 Patient seen and examined this morning, complaining of some tightness and pressure in the chest this morning. Laboratory data, subsequent troponin 1.32 and 1.34, hemoglobin 10.0 today, platelet count 132. Sodium 137, potassium 4.1, BUN [address] Samayoa did go into see the patient this morning and recommended that he undergo cardiac catheterization today. The risks and the benefits were explained to the patient in detail. I also called his at home and explained that Dr. Zachary Samayoa was recommending he undergo cardiac catheterization. Objective - Vital Signs Vital signs: Vital Signs Temp 98.0 F 12/16/19 09:14 Pulse 62 12/16/19 09:14 Resp 16 12/16/19 09:25 BP 106/57 12/16/19 09:14 Pulse Ox 98 12/16/19 09:14 Intake & Output 12/15/19 12/16/19 12/16/19 18:59 06:59 18:59 Intake Total 58.541 240 360.467 Balance 58.541 240 360.467 Weight 66.678 kg 66 kg Intake: IV 10 Invasive Line 1 10 Intake, IV Titration 58.541 110.467 Amount Heparin Sod,Pork in 0.45% 58.541 110.467 NaCl 25,000 unit In 0.45 % NaCl 1 250ml.bag @ 12 UNITS/KG/HR 8.001 mls/hr IV .Q24H [facility] Rx#: [id number] Oral 240 240 Other: Voiding Method Diaper Diaper Incontinent Incontinent # Voids 1 2 - Exam PHYSICAL EXAMINATION: GENERAL: 78-year-old gentleman in no acute distress at the time of my examination HEENT: Head is atraumatic, normocephalic. Pupils equal, round. Sclera anicteric. Conjunctiva are clear. Mucous membranes of the mouth are moist. Neck is supple. There is no elevated jugular venous pressure. No carotid bruit is heard. HEART EXAMINATION: Heart S1, S2 normal. No murmur or gallop heard. CHEST EXAMINATION: Lungs are clear to auscultation and precussion. No chest wall tenderness is noted on palpation or with deep breathing. ABDOMEN: Soft, nontender. Bowel sounds are heard. No organomegaly noted. EXTREMITIES: 2+ peripheral pulses with no evidence of peripheral edema and no calf tenderness noted. NEUROLOGIC patient is awake, alert and oriented 2 . Speech is very delayed and slow . - Labs CBC & Chem 7: 12/16/19 05:19 12/16/19 05:19 Labs: Abnormal Lab Results - Last 24 Hours (Table) 12/15/19 12/15/19 12/15/19 Range/Units 11:52 14:30 15:39 RBC (4.30-5.90) m/uL Hgb (13.0-17.5) gm/dL Hct (39.0-53.0) % MCV (80.0-100.0) fL Plt Count (150-450) k/uL APTT 92.5 H (22.0-30.0) sec Chloride (98-107) mmol/L Carbon Dioxide (22-30) mmol/L Troponin I 1.320 H* (0.000-0.034) ng/mL HDL Cholesterol (40-60) mg/dL Urine Protein Trace H (Negative) Urine Ketones Trace H (Negative) Urine Blood Trace H (Negative) Hyaline Casts 7 H (0-2) /lpf Urine Mucus Moderate H (None) /hpf 12/15/19 12/15/19 12/16/19 Range/Units 19:22 23:35 05:19 RBC (4.30-5.90) m/uL Hgb (13.0-17.5) gm/dL Hct (39.0-53.0) % MCV (80.0-100.0) fL Plt Count (150-450) k/uL APTT 58.9 H (22.0-30.0) sec Chloride 112 H (98-107) mmol/L Carbon Dioxide 21 L (22-30) mmol/L Troponin I 1.340 H* (0.000-0.034) ng/mL HDL Cholesterol 62 H (40-60) mg/dL Urine Protein (Negative) Urine Ketones (Negative) Urine Blood (Negative) Hyaline Casts (0-2) /lpf Urine Mucus (None) /hpf 12/16/19 12/16/19 Range/Units 05:19 05:19 RBC 3.06 L (4.30-5.90) m/uL Hgb 10.0 L D (13.0-17.5) gm/dL Hct 30.7 L (39.0-53.0) % MCV 100.6 H (80.0-100.0) fL Plt Count 132 L (150-450) k/uL APTT 57.3 H (22.0-30.0) sec Chloride (98-107) mmol/L Carbon Dioxide (22-30) mmol/L Troponin I (0.000-0.034) ng/mL HDL Cholesterol (40-60) mg/dL Urine Protein (Negative) Urine Ketones (Negative) Urine Blood (Negative) Hyaline Casts (0-2) /lpf Urine Mucus (None) /hpf Assessment and Plan Plan: Assessment and plan #1 syncope, rule out cardiac causes #2 sick sinus syndrome with prior pacemaker implantation. Patient's device was interrogated, shows that the patient's end-of-life for his device is within one month, it does not show any evidence of significant pauses, it did document 3 single episodes of atrial arrhythmias.] #3 atrial fibrillation, paroxysmal, and initial EKG performed by EMS shows atrial fibrillation with rapid ventricular response #4 hypertension #5 hyperlipidemia #6 Parkinson's #7 ALS #8 episode of chest discomfort, troponins on an upward trend, 1.3 this morning. Echo revealed a normal left ventricular systolic function Plan Patient was recommended this morning by Dr. Zachary Samayoa to undergo cardiac catheterization, the risks and benefits were explained to the patient in detail and he was willing to proceed. This was also discussed with his who is aware that the procedure is being done today. DNP note has been reviewed, I agree with a documented findings and plan of care. Patient was seen and examined.
[2019-12-16] MEDS ORDERED: MAG HYDROX/AL HYDROX/SIMETH 30 ML CUP PO PRN (11:39)
[2019-12-16] MEDS ORDERED: ZOLPIDEM 5 MG TAB PO PRN (11:39)
[2019-12-16] MEDS ORDERED: ATROPINE SULFATE 0.1 MG/ML 10ML SYRINGE IV PRN (11:39)
[2019-12-16] MEDS ORDERED: RX INFO: IV CONTRAST WAS GIVEN 1 EACH MISC MISCELLANE PRN (11:39)
--- NOTE | 2019-12-16 12:08 | P.PN ---
Subjective 79-year-old pleasant gentleman was admitted for acute non-ST elevation microinfarction patient underwent cardiac catheterization and stenting to distal circumflex. Patient does have other multiple medical problems including possible amyotrophic lateral sclerosis and Parkinson's. Constitutional: Denied any fatigue denied any fever. Cardio vascular: denied any chest pain, palpitations Gastrointestinal denied any nausea vomiting Pulmonary: Denied any shortness of breath cough Neurologic denied any new focal deficits All inpatient medications were reviewed and appropriate changes in these medications as dictated in the interval history and assessment and plan. Objective - Vital Signs Vital signs: Vital Signs Temp 98.0 F 12/16/19 09:14 Pulse 62 12/16/19 09:14 Resp 16 12/16/19 09:25 BP 106/57 12/16/19 09:14 Pulse Ox 98 12/16/19 09:14 Intake & Output 12/15/19 12/16/19 12/16/19 18:59 06:59 18:59 Intake Total 58.541 240 480.087 Balance 58.541 240 480.087 Weight 66.678 kg 66 kg Intake: IV 129.62 Invasive Line 1 10 Intake, IV Titration 58.541 110.467 Amount Heparin Sod,Pork in 0.45% 58.541 110.467 NaCl 25,000 unit In 0.45 % NaCl 1 250ml.bag @ 12 UNITS/KG/HR 8.001 mls/hr IV .Q24H COUNT INCLUDES THE [facility] Rx#: [id number] Oral 240 240 Other: Voiding Method Diaper Diaper Incontinent Incontinent # Voids 1 2 - Exam PHYSICAL EXAMINATION: GENERAL: The patient is alert and oriented x3, not in any acute distress. Well developed, well nourished. HEENT: Pupils are round and equally reacting to light. EOMI. No scleral icterus. No conjunctival pallor. Normocephalic, atraumatic. No pharyngeal erythema. No thyromegaly. CARDIOVASCULAR: S1 and S2 present. No murmurs, rubs, or gallops. PULMONARY: Chest is clear to auscultation, no wheezing or crackles. ABDOMEN: Soft, nontender, nondistended, normoactive bowel sounds. No palpable organomegaly. MUSCULOSKELETAL: No joint swelling or deformity. EXTREMITIES: No cyanosis, clubbing, or pedal edema. NEUROLOGICAL: Gross neurological examination did not reveal any new focal deficits. SKIN: No rashes. - Labs CBC & Chem 7: 12/16/19 05:19 12/16/19 05:19 Labs: Abnormal Lab Results - Last 24 Hours (Table) 12/15/19 12/15/19 12/15/19 Range/Units 11:52 14:30 15:39 RBC (4.30-5.90) m/uL Hgb (13.0-17.5) gm/dL Hct (39.0-53.0) % MCV (80.0-100.0) fL Plt Count (150-450) k/uL APTT 92.5 H (22.0-30.0) sec Chloride (98-107) mmol/L Carbon Dioxide (22-30) mmol/L Troponin I 1.320 H* (0.000-0.034) ng/mL HDL Cholesterol (40-60) mg/dL Urine Protein Trace H (Negative) Urine Ketones Trace H (Negative) Urine Blood Trace H (Negative) Hyaline Casts 7 H (0-2) /lpf Urine Mucus Moderate H (None) /hpf 12/15/19 12/15/19 12/16/19 Range/Units 19:22 23:35 05:19 RBC (4.30-5.90) m/uL Hgb (13.0-17.5) gm/dL Hct (39.0-53.0) % MCV (80.0-100.0) fL Plt Count (150-450) k/uL APTT 58.9 H (22.0-30.0) sec Chloride 112 H (98-107) mmol/L Carbon Dioxide 21 L (22-30) mmol/L Troponin I 1.340 H* (0.000-0.034) ng/mL HDL Cholesterol 62 H (40-60) mg/dL Urine Protein (Negative) Urine Ketones (Negative) Urine Blood (Negative) Hyaline Casts (0-2) /lpf Urine Mucus (None) /hpf 12/16/19 12/16/19 Range/Units 05:19 05:19 RBC 3.06 L (4.30-5.90) m/uL Hgb 10.0 L D (13.0-17.5) gm/dL Hct 30.7 L (39.0-53.0) % MCV 100.6 H (80.0-100.0) fL Plt Count 132 L (150-450) k/uL APTT 57.3 H (22.0-30.0) sec Chloride (98-107) mmol/L Carbon Dioxide (22-30) mmol/L Troponin I (0.000-0.034) ng/mL HDL Cholesterol (40-60) mg/dL Urine Protein (Negative) Urine Ketones (Negative) Urine Blood (Negative) Hyaline Casts (0-2) /lpf Urine Mucus (None) /hpf Assessment and Plan Plan: -syncope: Secondary to acute microinfarction patient underwent cardiac physician and stenting -Acute non-ST elevation NH -6 and sinus syndrome with pacemaker placement -Proximal A. fib presently rate controlled initially rapid ventricular response on admission. -Hypertension -Hyperlipidemia -Parkinson's without any significant tumor at this time -Possibility of amyotrophic lateral sclerosis For above-mentioned chronic medical problems patient will be resumed on appropriate home medications
--- NOTE | 2019-12-16 12:35 | CC ---
CARDIAC CATHETERIZATION REPORT DATE OF SERVICE: 12/16/2019 PROCEDURE: 1. Left heart catheterization and coronary angiography. 2. PTCA and stenting of mid LAD with a drug-eluting stent. PERFORMED BY: Dr. Mickey Samayoa. Moderate conscious sedation time was 35 minutes. Patient was administered Versed. His oxygen saturation, hemodynamics and EKG were monitored closely. CLINICAL INFORMATION: Mr. Randee Hairston is a 79-year-old gentleman with a history of parkinsonism, also has hypertension, hyperlipidemia, and has also some speech issues related to parkinsonism. He has somewhat of a slow speech. He came in with chest discomfort, had a troponin elevation and EKG did not reveal significant changes. This morning during my evaluation, he complained of persistent chest tightness and pressure. Therefore I recommended coronary angiography after due discussion regarding risks, benefits, and options. Echo revealed preserved LV function. The patient has non-ST elevation MS with ongoing chest pain. PROCEDURE NOTE: Under local anesthesia and strict aseptic precautions, a 6-Maltese introducer was placed in the right radial artery. Using a JL3.5 and JR4 catheters, I performed coronary angiography and the same right Oliver catheter was used to check LV pressures. LV gram was not performed. I then proceeded to perform intervention of the mid LAD. Following intervention, the sheath was taken out and TR band applied as per protocol and he was sent to the room in a stable condition. Saturation of the fingers of the right hand was 96%. The results of the cardiac cath and PCI were explained to the patient and also I called his , Zoey, by phone and gave her the details. The patient will be discharged tomorrow if he remains stable. CARDIAC CATHETERIZATION FINDINGS: The left ventricular end-diastolic pressure was 12 mmHg without any gradient across aortic valve. CORONARY ANGIOGRAPHY FINDINGS: RIGHT CORONARY ARTERY: Dominant vessel no significant disease proximally has a 30% to 40% narrowing. Distally gives off a small PLV large PDA which is free of significant disease. The RCA therefore is relatively disease free vessel with a significant sized PDA but PLV is small. LEFT MAIN CORONARY ARTERY: Short patent vessel. No significant disease. Bifurcates into LAD and circumflex. LEFT ANTERIOR DESCENDING CORONARY ARTERY: Good caliber vessel extends along the anterior wall, gives off septal and diagonal branches. At the junction of the middle and distal 1/3, there is an eccentric 80% narrowing after the origin of the 2 diagonal branches and beyond it the vessel curves over the apex to supply the inferoapical portion of left ventricle. There is a moderate amount of myocardium distal to the stenosis and the narrowing is about 80% in multiple views and the vessels appear to be at least 2.0 to 2.25. The small diagonal and septal branches are free of significant disease. LEFT POSTERIOR CIRCUMFLEX CORONARY ARTERY: Nondominant vessel gives 3 obtuse marginal branches. The first is large. The second two are smaller. The third obtuse marginal has about a 40% stenosis in the ostium and then it continues as a posterolateral branch. The circumflex therefore has noncritical disease and is a fair caliber fair distribution nondominant vessel. PLV and the first OM are free of significant disease. The second OM is free of significant disease. Third OM has about a 40% to 50% restenosis in the proximal and ostial portion. LEFT VENTRICULOGRAM: Left ventriculogram was not performed. FINAL IMPRESSION: This patient has an 80% mid LAD lesion eccentric calcified. The right dominant system, no significant disease in the RCA. Circumflex has one obtuse marginal has about a 40% to 50% stenosis, not a significant caliber vessel. Normal filling pressures. No gradient across aortic valve. RECOMMENDATIONS: I recommended PCI of mid LAD and proceeded to perform this in the same setting. PCI PROCEDURE DETAILS: I used a 3.5 left Oliver type guide catheter to cannulate the left coronary artery and a run-through wire to cross the lesion. Without predilatation a 12 mm long 2.0 caliber Remington stent was deployed at 12 atmospheres. Excellent angiographic result was achieved. Patient had mild chest discomfort but did not have significant EKG changes. Excellent angiographic result without complication was achieved. Patient received Angiomax bolus and infusion during the procedure and he also received Plavix 600 mg daily. The TR band was placed. Hemostasis was secured. He was sent to the room in a stable condition. Results were discussed with the patient and family. Excellent angiographic result without complication was achieved. MMODL / IJN: [id number] /
[2019-12-16] MEDS: SODIUM CHLORIDE 0.9% 1,000 ML IV SCH ×2 (13:19→23:16)
[2019-12-16 14:33] VITALS: BMI 23.5
[2019-12-16] MEDS ORDERED: LOSARTAN 25 MG TAB PO SCH (21:00)
[2019-12-17] MEDS: LEVOTHYROXINE 25 MCG TAB PO SCH (06:32)
[2019-12-17] MEDS: CARBIDOPA-LEVODOPA 25-100 MG 1 EACH TAB PO SCH ×2 (06:32→12:04)
[2019-12-17 07:34] LABS: Basophils % (A) 0 %; Eosinophils # (A) 0.1 k/uL (0-0.7); Eosinophils % (A) 2 %; HGB 10.4 gm/dL (13.0-17.5); Lymphocytes # (A) 1.6 k/uL (1.0-4.8); Lymphocytes % (A) 28 %; MCH 32.5 pg (25.0-35.0); MCHC 32.4 g/dL (31.0-37.0); MCV 100.1 fL (80.0-100.0); Mean Platelet Volume 8.5; Monocytes # (A) 0.2 k/uL (0-1.0); Monocytes % (A) 4 %; Neutrophils # (A) 3.8 k/uL (1.3-7.7); Neutrophils % (A) 66 %; Platelet Count 147 k/uL (150-450); RDW 12.5 % (11.5-15.5); WBC 5.7 k/uL (3.8-10.6)
[2019-12-17 07:45] LABS: Calcium 8.1 mg/dL (8.4-10.2); Potassium 4.1 mmol/L (3.5-5.1)
[2019-12-17] MEDS ORDERED: ASPIRIN 81 MG PO SCH (09:00)
[2019-12-17] MEDS ORDERED: ATORVASTATIN 40 MG TAB PO SCH (09:00)
[2019-12-17] MEDS ORDERED: CLOPIDOGREL 75 MG TAB PO SCH (09:00)
--- NOTE | 2019-12-17 10:26 | PN ---
PROGRESS NOTE Mr. Hairston underwent stenting of mid LAD. He is doing well today. His right radial site is clean and dry with some tenderness. Pulse is excellent. Vitals are stable. No JVD. S1, S2 heard normally. Lungs are clear. Abdomen and lower extremity exam unchanged. Patient's labs and EKG are unremarkable. He has atrial paced rhythm. He can be discharged today and he will see Dr. Lennon in one week. He will continue aspirin and Plavix without interruption. Discharge instructions regarding activity, diet and medications were given and I expect patient will go home today. MMODL / IJN: [id number] /
[2019-12-17] MEDS: ASCORBIC ACID 500 MG TAB PO SCH (10:53)
[2019-12-17] MEDS: METOPROLOL SUCCINATE (ER) 25 MG TAB.ER.24H PO SCH (10:54)
[2019-12-17] MEDS: TAMSULOSIN 0.4 MG CAP.ER.24H PO SCH (10:54)
[2019-12-17] MEDS: MULTIVITAMINS, THERA 1 EACH TAB PO SCH (10:54)
[2019-12-17] MEDS: DONEPEZIL 10 MG TAB PO SCH (10:54)
[2019-12-17 12:12] VITALS: BP 176/71; PULSE 68; TEMP 97.6
--- NOTE | 2019-12-17 14:51 | P.DS ---
Providers Date of admission: 12/15/19 11:06 Expected date of discharge: 12/17/19 Attending physician: Mono Sue Consults: 12/15/19 09:29 Consult Physician Urgent Consulting Provider: Issa Lennon Consult Reason/Comments: syncope, pacemaker, nstemi Do you want consulting provider notified?: Yes 12/16/19 11:39 Consult Physician Routine Consulting Provider: [facility] Consult Reason/Comments: Post Interventional patient Do you want consulting provider notified?: Already Contacted [facility]: Final diagnosis -syncope: Secondary to acute myocardial infarction -Status post cardiac catheterization with stenting -Acute non-ST elevation MS -sick sinus syndrome with pacemaker placement -Proximal A. fib presently rate controlled initially rapid ventricular response on admission. -Hypertension -Hyperlipidemia -Parkinson's -Possibility of amyotrophic lateral sclerosis Discharge disposition Patient is being discharged in a stable condition with guarded prognosis to home and will follow-up with primary care provider upon discharge. Patient will also need to follow-up with cardiology in the next week. Total time taken is 35 minutes. History of present illness This is a 79-year-old male was recently admitted for acute non-ST segment elevation myocardial infarction and underwent cardiac catheterization with stenting to the distal circumflex. Cardiology was following. Patient will follow-up with cardiology in the outpatient setting upon discharge. Patient continues to be slightly confused at times although family is adamant about taking the patient home today. Patient has been up and walking with a walker with no difficulties and will be going home today. Currently no reports of chest pain, shortness of breath, or palpitations. Patient is afebrile. No reports of nausea or vomiting and patient is tolerating diet. On exam vital signs are stable. Temp is 97.6F, pulse is 68, respirations are 16, blood pressure is 176/71, oxygen saturation is 97% on room air. Cardio S1, S2 are present. Respiratory shows diminished breath sounds at the bases with no wheezing or rhonchi noted. Abdomen is soft with thin, and nontender. Nervous system shows no focal deficits. Please refer to medication reconciliation sheet for a list of medications. Patient Condition at Discharge: Good Plan - Discharge Summary Discharge Rx Participant: Yes New Discharge Prescriptions: New Aspirin 81 mg PO DAILY #30 chew Losartan [Cozaar] 25 mg PO HS #30 tab Nitroglycerin Sl Tabs [Nitrostat] 0.4 mg SUBLINGUAL Q5M PRN #25 tab PRN Reason: Chest Pain Clopidogrel [Plavix] 75 mg PO DAILY #30 tab Multivitamins, Thera [Multivitamin (formulary)] 1 each PO DAILY 30 Days #30 tab Carbidopa-Levodopa 25-100 mg [Sinemet 25-100 mg] 1.5 each PO AC-TID #60 tab Ascorbic Acid [Vitamin C] 1,000 mg PO DAILY 30 Days #30 tab Continue Riluzole [Rilutek] 100 mg PO DAILY Tamsulosin HCl [Flomax] 0.4 mg PO DAILY Simvastatin 40 mg PO DAILY Metoprolol Succinate (ER) [Toprol XL] 25 mg PO DAILY Donepezil HCl [Aricept] 10 mg PO DAILY Levothyroxine Sodium 25 mcg PO DAILY Discontinued Carbidopa-Levodopa 25-100 mg [Sinemet 25-100] 1 tab PO TID Discharge Medication List Donepezil HCl [Aricept] 10 mg PO DAILY 02/21/19 [History] Metoprolol Succinate (ER) [Toprol XL] 25 mg PO DAILY 02/21/19 [History] Riluzole [Rilutek] 100 mg PO DAILY 02/21/19 [History] Simvastatin 40 mg PO DAILY 02/21/19 [History] Tamsulosin HCl [Flomax] 0.4 mg PO DAILY 02/21/19 [History] Levothyroxine Sodium 25 mcg PO DAILY 12/15/19 [History] Ascorbic Acid [Vitamin C] 1,000 mg PO DAILY 30 Days #30 tab 12/17/19 [Rx] Aspirin 81 mg PO DAILY #30 chew 12/17/19 [Rx] Carbidopa-Levodopa 25-100 mg [Sinemet 25-100 mg] 1.5 each PO AC-TID #60 tab 12/17/19 [Rx] Clopidogrel [Plavix] 75 mg PO DAILY #30 tab 12/17/19 [Rx] Losartan [Cozaar] 25 mg PO HS #30 tab 12/17/19 [Rx] Multivitamins, Thera [Multivitamin (formulary)] 1 each PO DAILY 30 Days #30 tab 12/17/19 [Rx] Nitroglycerin Sl Tabs [Nitrostat] 0.4 mg SUBLINGUAL Q5M PRN #25 tab 12/17/19 [Rx] Follow up Appointment(s)/Referral(s): Issa Lennon MD [STAFF PHYSICIAN] - 12/23/19 9:30 am Patient Instructions/Handouts: Chest Pain (DC), After Radial Heart Catheterization (GEN) Activity/Diet/Wound Care/Special Instructions: Activity Limited until follow-up Follow-up with primary care provider upon discharge Follow Up with cardiology as discussed and scheduled Continue current diet Discharge Disposition: HOME SELF-CARE
== END 2019-12-17 13:52 | disposition home or self-care (01) | DRG 247 ==
LOC: EC 06:57 → 3SCARD 11:06
PROVIDERS: ADMIT Hospitalist; ATTEND Hospitalist
PROC: 4B02XSZ Measurement of Cardiac Pacemaker, External Approach (ICD-10-PCS; 2019-12-15)
PROC: 4A023N7 Measurement of Cardiac Sampling and Pressure, Left Heart, Percutaneous Approach (ICD-10-PCS; principal; 2019-12-16 08:00)
PROC: B2111ZZ Fluoroscopy of Multiple Coronary Arteries using Low Osmolar Contrast (ICD-10-PCS; principal; 2019-12-16 08:00)
PROC: 027034Z Dilation of Coronary Artery, One Artery with Drug-eluting Intraluminal Device, Percutaneous Approach (ICD-10-PCS; principal; 2019-12-16 08:00)
DX: I21.4 Non-ST elevation (NSTEMI) myocardial infarction (principal); G12.21 Amyotrophic lateral sclerosis; I49.5 Sick sinus syndrome; D63.8 Anemia in other chronic diseases classified elsewhere; F02.80 Dementia in other diseases classified elsewhere, unspecified severity, without behavioral disturbance, psychotic disturbance, mood disturbance, and anxiety; G20 Parkinson's disease; I25.10 Atherosclerotic heart disease of native coronary artery without angina pectoris; I25.84 Coronary atherosclerosis due to calcified coronary lesion; I48.0 Paroxysmal atrial fibrillation; E78.5 Hyperlipidemia, unspecified; I10 Essential (primary) hypertension; Z79.890 Hormone replacement therapy; Z79.899 Other long term (current) drug therapy; Z90.49 Acquired absence of other specified parts of digestive tract; Z95.0 Presence of cardiac pacemaker; Z98.890 Other specified postprocedural states; Z81.8 Family history of other mental and behavioral disorders
CPT/HCPCS: 36415; 71046; 80048; 80053; 80061; 81001; 83735; 84484; 85025; 85379; 85610; 85730; 93005; 93306; 93458; 96361; 96365; 96366; 96376; 99285

== ENCOUNTER 2020-02-25 06:12 | Inpatient (IN) | payer MEDICARE, OTHER ==
[2020-02-25] MEDS ORDERED: SODIUM CHLORIDE 0.9% 1,000 ML IV STA (06:26)
--- NOTE | 2020-02-25 06:33 | ED ---
General Adult HPI - General Chief complaint: Fall Stated complaint: Fall Time Seen by Provider: 02/25/20 06:15 Source: patient, EMS, RN notes reviewed Mode of arrival: EMS Limitations: physical limitation - History of Present Illness Initial comments: This a 79-year-old male presents emergency department via EMS from home after of multiple falls. Patient does have a history of ALS, Parkinson's disease. Patient states he remembers losing his balance this morning falling in the bathroom which was heard by . Patient was found on the ground. Patient denies any headache or dizziness at this time. Denies any chest pain or shortness breath. He does admit that he feels generalized weak. Patient complains of pain to his right hand fourth digit, left elbow, buttocks pain. Patient denies any low back pain does complain of mild upper back pain. Patient found to have low blood pressure which patient states is normal for him. Patient denies any complaints of abdominal pain, nausea vomiting diarrhea constipation. - Related Data Home Medications Medication Instructions Recorded Confirmed Donepezil HCl [Aricept] 10 mg PO DAILY 02/21/19 02/25/20 Metoprolol Succinate (ER) [Toprol 25 mg PO DAILY 02/21/19 02/25/20 XL] Riluzole [Rilutek] 100 mg PO DAILY 02/21/19 02/25/20 Tamsulosin HCl [Flomax] 0.4 mg PO DAILY 02/21/19 02/25/20 Levothyroxine Sodium 25 mcg PO DAILY 12/15/19 02/25/20 Atorvastatin Calcium [Lipitor] 40 mg PO W/SUPPER 02/25/20 02/25/20 Carbidopa-Levodopa 25-100 mg 1.5 tab PO AC-TID 02/25/20 02/25/20 [Sinemet 25-100 mg] Multivitamins, Thera [Multivitamin 1 tab PO DAILY 02/25/20 02/25/20 (formulary)] Previous Rx's Medication Instructions Recorded Ascorbic Acid [Vitamin C] 1,000 mg PO DAILY 30 Days #30 tab 12/17/19 Aspirin 81 mg PO DAILY #30 chew 12/17/19 Clopidogrel [Plavix] 75 mg PO DAILY #30 tab 12/17/19 Losartan [Cozaar] 25 mg PO HS #30 tab 12/17/19 Nitroglycerin Sl Tabs [Nitrostat] 0.4 mg SUBLINGUAL Q5M PRN #25 tab 12/17/19 Allergies Allergy/AdvReac Type Severity Reaction Status Date / Time No Known Allergies Allergy Verified 02/25/20 08:19 Review of Systems ROS Statement: Those systems with pertinent positive or pertinent negative responses have been documented in the HPI. ROS Other: All systems not noted in ROS Statement are negative. Past Medical History Past Medical History: Dementia, Hyperlipidemia, Hypertension Additional Past Medical History / Comment(s): PARKINSONS, ALS. History of Any Multi-Drug Resistant Organisms: None Reported Past Surgical History: Appendectomy, Cholecystectomy, Pacemaker Type of Cardiac Device: Permanent Pacemaker, AICD Device Placement Date:: 2010 Past Psychological History: No Psychological Hx Reported Smoking Status: Never smoker Past Alcohol Use History: Occasional Past Drug Use History: None Reported - Past Family History Mother Family Medical History: Dementia Father Family Medical History: Dementia General Exam Limitations: physical limitation General appearance: alert, in no apparent distress Head exam: Present: atraumatic, normocephalic, normal inspection Eye exam: Present: normal appearance, PERRL, EOMI. Absent: scleral icterus, conjunctival injection, periorbital swelling ENT exam: Present: normal exam, normal oropharynx, mucous membranes moist Neck exam: Present: normal inspection. Absent: tenderness, meningismus, full ROM (Patient in c-collar), lymphadenopathy Respiratory exam: Present: normal lung sounds bilaterally. Absent: respiratory distress, wheezes, rales, rhonchi, stridor Cardiovascular Exam: Present: regular rate, normal rhythm, normal heart sounds. Absent: systolic murmur, diastolic murmur, rubs, gallop, clicks GI/Abdominal exam: Present: soft, normal bowel sounds. Absent: distended, tenderness, guarding, rebound, rigid Extremities exam: Present: other (Deformity noted to the right hand fourth digit, tenderness to left elbow with slightly decreased range of motion, ecchymosis and abrasion noted lower extremity exam nontender neurovascular intact) Back exam: Present: full ROM, tenderness, paraspinal tenderness, vertebral tenderness Neurological exam: Present: alert, oriented X3, CN II-XII intact, reflexes normal. Absent: motor sensory deficit Skin exam: Present: warm, dry, intact, normal color. Absent: rash Course Vital Signs 02/25/20 02/25/20 02/25/20 06:14 06:45 07:35 Temperature 97.4 F L Pulse Rate 60 65 Respiratory 16 16 18 Rate Blood Pressure 82/66 81/47 103/92 O2 Sat by Pulse 99 100 96 Oximetry 02/25/20 02/25/20 02/25/20 08:15 08:49 09:33 Temperature Pulse Rate 64 65 65 Respiratory 18 18 18 Rate Blood Pressure 81/48 85/70 96/67 O2 Sat by Pulse 98 99 99 Oximetry EKG Findings - EKG Comments: EKG Findings:: EKG: A 6:20 ventricular paced rate of 65 QRS 144 QT/QTC 468/486 Procedures - Orthopedic Joint Reduction Joint #1 Consent Obtained: verbal consent Side: right Joint Reduction Location: finger (Third) Analgesia: none Technique Used: traction/counter-traction Post-Reduction Neuro Exam: intact Post-Reduction Vascular Exam: intact Post Reduction X-Ray Obtained: Yes Splint Applied: No Patient Tolerated Procedure: well, no complications Joint #2 Consent Obtained: verbal consent Side: right Joint Reduction Location: finger (Fourth) Analgesia: digital block Local Anesthetic Used: Lidocaine 1% (Without epinephrine) Technique Used: traction/counter-traction Post-Reduction Neuro Exam: intact Post-Reduction Vascular Exam: intact Post Reduction X-Ray Obtained: Yes Post Reduction X-Ray Results: reduced Splint Applied: No Patient Tolerated Procedure: well, no complications Medical Decision Making - Medical Decision Making 79-year-old male presented for multiple falls, weakness. Patient's found to be dehydrated with acute kidney injury, mild hypertension which has responded with IV fluid hydration. states that he does not eat or drink much throughout the day. Patient does have worsening Parkinson's, ALS. Patient's case discussed with Dr. castorena which patient will be admitted for IV hydration, possible physical therapy and further management. - Lab Data Result diagrams: 02/25/20 06:30 02/25/20 06:30 Lab Results 02/25/20 02/25/20 02/25/20 Range/Units 06:30 06:30 06:30 WBC 8.4 (3.8-10.6) k/uL RBC 3.35 L (4.30-5.90) m/uL Hgb 11.4 L (13.0-17.5) gm/dL Hct 34.8 L (39.0-53.0) % MCV 103.7 H (80.0-100.0) fL MCH 34.0 (25.0-35.0) pg MCHC 32.8 (31.0-37.0) g/dL RDW 12.8 (11.5-15.5) % Plt Count 159 (150-450) k/uL Neutrophils % 65 % Lymphocytes % 29 % Monocytes % 4 % Eosinophils % 1 % Basophils % 0 % Neutrophils # 5.5 (1.3-7.7) k/uL Lymphocytes # 2.4 (1.0-4.8) k/uL Monocytes # 0.3 (0-1.0) k/uL Eosinophils # 0.1 (0-0.7) k/uL Basophils # 0.0 (0-0.2) k/uL Macrocytosis Slight PT 10.4 (9.0-12.0) sec INR 1.0 (<1.2) APTT 20.6 L (22.0-30.0) sec Sodium 138 (137-145) mmol/L Potassium 4.6 (3.5-5.1) mmol/L Chloride 106 (98-107) mmol/L Carbon Dioxide 26 (22-30) mmol/L Anion Gap 6 mmol/L BUN 32 H (9-20) mg/dL Creatinine 1.43 H (0.66-1.25) mg/dL Est GFR (CKD-EPI)AfAm 55 (>60 ml/min/1.73 sqM) Est GFR (CKD-EPI)NonAf 47 (>60 ml/min/1.73 sqM) Glucose 103 H (74-99) mg/dL Plasma Lactic Acid Vaughn (0.7-2.0) mmol/L Calcium 9.1 (8.4-10.2) mg/dL Magnesium 2.4 H (1.6-2.3) mg/dL Total Bilirubin 0.5 (0.2-1.3) mg/dL AST 43 (17-59) U/L ALT 43 (4-49) U/L Alkaline Phosphatase 61 (38-126) U/L Creatine Kinase 349 H (55-170) U/L Troponin I (0.000-0.034) ng/mL Total Protein 7.4 (6.3-8.2) g/dL Albumin 3.7 (3.5-5.0) g/dL Urine Color Urine Appearance (Clear) Urine pH (5.0-8.0) Ur Specific [place] (1.001-1.035) Urine Protein (Negative) Urine Glucose (UA) (Negative) Urine Ketones (Negative) Urine Blood (Negative) Urine Nitrite (Negative) Urine Bilirubin (Negative) Urine Urobilinogen (<2.0) mg/dL Ur Leukocyte Esterase (Negative) 02/25/20 02/25/20 02/25/20 Range/Units 06:30 06:30 09:05 WBC (3.8-10.6) k/uL RBC (4.30-5.90) m/uL Hgb (13.0-17.5) gm/dL Hct (39.0-53.0) % MCV (80.0-100.0) fL MCH (25.0-35.0) pg MCHC (31.0-37.0) g/dL RDW (11.5-15.5) % Plt Count (150-450) k/uL Neutrophils % % Lymphocytes % % Monocytes % % Eosinophils % % Basophils % % Neutrophils # (1.3-7.7) k/uL Lymphocytes # (1.0-4.8) k/uL Monocytes # (0-1.0) k/uL Eosinophils # (0-0.7) k/uL Basophils # (0-0.2) k/uL Macrocytosis PT (9.0-12.0) sec INR (<1.2) APTT (22.0-30.0) sec Sodium (137-145) mmol/L Potassium (3.5-5.1) mmol/L Chloride (98-107) mmol/L Carbon Dioxide (22-30) mmol/L Anion Gap mmol/L BUN (9-20) mg/dL Creatinine (0.66-1.25) mg/dL Est GFR (CKD-EPI)AfAm (>60 ml/min/1.73 sqM) Est GFR (CKD-EPI)NonAf (>60 ml/min/1.73 sqM) Glucose (74-99) mg/dL Plasma Lactic Acid Vaughn 1.6 (0.7-2.0) mmol/L Calcium (8.4-10.2) mg/dL Magnesium (1.6-2.3) mg/dL Total Bilirubin (0.2-1.3) mg/dL AST (17-59) U/L ALT (4-49) U/L Alkaline Phosphatase (38-126) U/L Creatine Kinase (55-170) U/L Troponin I <0.012 (0.000-0.034) ng/mL Total Protein (6.3-8.2) g/dL Albumin (3.5-5.0) g/dL Urine Color Yellow Urine Appearance Clear (Clear) Urine pH 5.5 (5.0-8.0) Ur Specific [place] 1.024 (1.001-1.035) Urine Protein Trace H (Negative) Urine Glucose (UA) Negative (Negative) Urine Ketones Trace H (Negative) Urine Blood Negative (Negative) Urine Nitrite Negative (Negative) Urine Bilirubin Negative (Negative) Urine Urobilinogen <2.0 (<2.0) mg/dL Ur Leukocyte Esterase Negative (Negative) Disposition Clinical Impression: Fall, Weakness, Dehydration, YESIKA (acute kidney injury), ALS (amyotrophic lateral sclerosis) Disposition: ADMITTED IP TO THIS [facility] Condition: Fair Referrals: Ben Arriaga III, MD [Primary Care Provider] - 1-2 days
[2020-02-25 06:42] LABS: Basophils % (A) 0 %; Eosinophils # (A) 0.1 k/uL (0-0.7); Eosinophils % (A) 1 %; HCT 34.8 % (39.0-53.0); HGB 11.4 gm/dL (13.0-17.5); Lymphocytes # (A) 2.4 k/uL (1.0-4.8); Lymphocytes % (A) 29 %; MCHC 32.8 g/dL (31.0-37.0); MCV 103.7 fL (80.0-100.0); Macrocytosis Slight; Monocytes # (A) 0.3 k/uL (0-1.0); Monocytes % (A) 4 %; Neutrophils # (A) 5.5 k/uL (1.3-7.7); Neutrophils % (A) 65 %; Platelet Count 159 k/uL (150-450); RBC 3.35 m/uL (4.30-5.90); RDW 12.8 % (11.5-15.5); WBC 8.4 k/uL (3.8-10.6)
[2020-02-25 06:55] LABS: Albumin 3.7 g/dL (3.5-5.0); Calcium 9.1 mg/dL (8.4-10.2); Magnesium 2.4 mg/dL (1.6-2.3); Potassium 4.6 mmol/L (3.5-5.1); Total Bilirubin 0.5 mg/dL (0.2-1.3); Total Protein 7.4 g/dL (6.3-8.2)
[2020-02-25 06:56] LABS: Prothrombin Time 10.4 sec (9.0-12.0)
--- NOTE | 2020-02-25 07:09 | CT ---
EXAMINATION TYPE: CT brain lenin wo con DATE OF EXAM: 02/25/2020 COMPARISON: CT brain 02/21/2019 HISTORY: Pain. Fall Neck pain. Headache CT DLP: 1239.3 mGycm Automated exposure control for dose reduction was used. There is some cerebral cortical atrophy. There is no mass effect nor midline shift. There is no sign of intracranial hemorrhage. The calvarium is intact. There is mucosal thickening left maxillary sinus . There is ethmoid sinus mucosal thickening. Cervical vertebra have normal alignment. There is no compression fracture. Posterior elements are int act. Facet joints are intact. The skull base is intact. There is normal aeration of the temporal bone s. There is no significant cervical disc space narrowing. There is mild spurring of the endplates. IMPRESSION: Minor degenerative changes in the cervical spine. No fracture. Cerebral atrophy. No acute intracranial abnormality. Sinusitis. No change compared to old exam.
[2020-02-25] MEDS ORDERED: LIDOCAINE 1% INJ 10MG/ML (20 ML MDV) SQ ONE (07:25)
[2020-02-25 07:26] LABS: Partial Thromboplastin Time 20.6 sec (22.0-30.0)
--- NOTE | 2020-02-25 07:26 | XR ---
EXAMINATION TYPE: XR thoracic spine 2V DATE OF EXAM: 02/25/2020 COMPARISON: None HISTORY: Pain TECHNIQUE: Three-view thoracic spine FINDINGS: There are 12 thoracic type vertebral bodies. Pedicles are intact disc heights and mild narr owing within the mid thoracic spine. Vertebral body heights are preserved. Alignment is normal. IMPRESSION: 1. No acute osseous abnormality thoracic spine.
--- NOTE | 2020-02-25 07:29 | XR ---
EXAMINATION TYPE: XR hand complete RT DATE OF EXAM: 02/25/2020 COMPARISON: None HISTORY: Pain fall TECHNIQUE: Three-view right hand FINDINGS: There is dislocations of the middle phalanx on the proximal phalanx of the third and fourth digits. No additional dislocations are evident. There is a tiny ossification in the joint space of t he right middle finger proximal interphalangeal joint space. Tiny avulsion is not excluded. Small a additional calcification is adjacent to the distal portion proximal phalanx of finger. No additional areas suspicious for fracture are evident. Joint spaces are otherwise preserved. Soft t issues are normal. IMPRESSION: 1. Dislocation of the middle phalanx on the proximal phalanx third and fourth digits. 2. Tiny avulsions at the proximal interphalangeal joint space of the middle finger are not excluded.
--- NOTE | 2020-02-25 07:30 | XR ---
EXAMINATION TYPE: XR pelvis AP view DATE OF EXAM: 02/25/2020 COMPARISON: None HISTORY: Fall, pain TECHNIQUE: AP pelvis FINDINGS: Femoral heads articulate with the acetabulum. Joint spaces are preserved. Symphysis pubis a nd sacroiliac joints are normal. Normal bowel gas is present. No acute osseous abnormality is evident . IMPRESSION: 1. Normal AP pelvis
--- NOTE | 2020-02-25 07:30 | XR ---
EXAMINATION TYPE: XR elbow complete LT DATE OF EXAM: 02/25/2020 COMPARISON: None HISTORY: Fall, pain TECHNIQUE: Three-view left elbow FINDINGS: Radius aligns normally with the humerus. Anterior fat pad is normal. No elevation of senior corporate accountant ior fat pad is evident which is normal. No acute fractures or dislocations are evident. Follow-up studies can be performed 7-10 days from acute trauma for continued pain. IMPRESSION: 1. Normal three-view left elbow.
--- NOTE | 2020-02-25 07:31 | XR ---
EXAMINATION TYPE: XR chest 1V DATE OF EXAM: 02/25/2020 COMPARISON: 12/15/2019 INDICATION: Fall, pain TECHNIQUE: Single frontal view of the chest is obtained. FINDINGS: The heart size is normal. The pulmonary vasculature is normal. The lungs are clear. Pacemaker overlies left chest. No pneumothorax is evident. No displaced fractures are identified. Right apex may be out of the field -of-view. IMPRESSION: 1. No acute pulmonary process.
[2020-02-25] MEDS ORDERED: SODIUM CHLORIDE 0.9% 1,000 ML IV ONE ×2 (07:32→08:22)
--- NOTE | 2020-02-25 08:04 | XR ---
EXAMINATION TYPE: XR hand limited RT DATE OF EXAM: 02/25/2020 CLINICAL HISTORY: Third and fourth finger dislocations after fall injury. TECHNIQUE: Frontal and lateral images of the right hand are obtained after reduction attempt. COMPARISON: Right hand x-ray earlier today.. FINDINGS: There is interval successful reduction of third and fourth finger dislocations at level of the PIP joints. No acute fracture is evident. Osseous structures are somewhat demineralized. IMPRESSION: As above.
[2020-02-25] MEDS ORDERED: LIDOCAINE URO-JET JELLY 2% 5 ML KIT URETHRAL ONE (08:45)
[2020-02-25 09:31] LABS: Appearance,Urine Clear (Clear); Bilirubin,Urine Negative (Negative); Blood,Urine Negative (Negative); Color,Urine Yellow; Glucose,Urine (UA) Negative (Negative); Ketones,Urine Trace (Negative); Leukocyte Esterase,Urine Negative (Negative); Nitrite,Urine Negative (Negative); PH, Urine 5.5 (5.0-8.0); Protein,Urine Trace (Negative); Specific Gravity,Urine 1.024 (1.001-1.035); Urobilinogen,Urine <2.0 mg/dL (<2.0)
[2020-02-25] MEDS: SODIUM CHLORIDE 0.9% 1,000 ML IV SCH ×2 (11:31→21:49)
[2020-02-25] MEDS ORDERED: NITROGLYCERIN SL TABS 0.4 MG TAB SUBLINGUAL PRN (16:08)
[2020-02-25] MEDS ORDERED: HYDROcodone/APAP 5-325MG 1 EACH TAB PO PRN (16:52)
[2020-02-25] MEDS ORDERED: HYDROmorphone 0.5 MG/0.5 ML SYRINGE IVP PRN (16:52)
[2020-02-25] MEDS ORDERED: ALPRAZolam 0.25 MG TAB PO PRN (16:52)
--- NOTE | 2020-02-25 17:46 | US ---
EXAMINATION TYPE: US carotid duplex BILAT DATE OF EXAM: 02/25/2020 COMPARISON: NONE CLINICAL HISTORY: stroke. Stroke, pt unresponsive EXAM MEASUREMENTS: RIGHT: Peak Systolic Velocity (PSV) cm/sec ----- Right CCA: 77.6 ----- Right ICA: 167.0 ----- Right ECA: 133.9 ICA/CCA ratio: 2.2 RIGHT: End Diastole cm/sec ----- Right CCA: 14.7 ----- Right ICA: 23.0 ----- Right ECA: 0.0 LEFT: Peak Systolic Velocity (PSV) cm/sec ----- Left CCA: 55.7 ----- Left ICA: 58.1 ----- Left ECA: 91.8 ICA/CCA ratio: 1.0 LEFT: End Diastole cm/sec ----- Left CCA: 10.4 ----- Left ICA: 15.3 ----- Left ECA: 0.0 VERTEBRALS (direction of flow): Right Vertebral: Antegrade Left Vertebral: Antegrade Rhythm: Arrhythmia Heterogeneous plaque bilaterally with elevated velocities within right ICA IMPRESSION: There is antegrade flow in the vertebral arteries. The main images and measurements suggest 50-70% st enosis in the right internal carotid artery. There is approximate 30% stenosis in the left internal c arotid artery. Criteria for Assigning % of Stenosis / Diameter reduction (Estimation based on the indirect measurements of the internal carotid artery velocities (ICA PSV). 1. Normal (no stenosis)=ICA PSV < 125 cm/s: ratio < 2.0: ICA EDV<40 cm/s. 2. Less than 50% stenosis=ICA PSV < 125 cm/s: ratio < 2.0: ICA EDV<40 cm/s. 3. 50 to 69% stenosis=ICA PSV of 125 to 230 cm/s: ration 2.0 ? 4.0: ICA EDV 40-100 cm/s. 4. Greater than 70% stenosis to near occlusion= ICA PSV > 230 cm/s: ratio > 4.0: ICA EDV > 100 cm/s. 5. Near occlusion= ICA PSV velocities may be low or undetectable: variable ratio and ICA EDV. 6. Total occlusion=unable to detect flow.
[2020-02-25] MEDS: CARBIDOPA-LEVODOPA 25-100 MG 1 EACH TAB PO SCH (21:48)
[2020-02-25] MEDS: ATORVASTATIN 40 MG TAB PO SCH (21:48)
[2020-02-25] MEDS: HEPARIN SODIUM,PORCINE 5,000 UNIT/ML 1 ML VIAL SQ SCH (21:48)
--- NOTE | 2020-02-25 22:46 | HP ---
HISTORY AND PHYSICAL DATE OF SERVICE: 02/25/2020 CHIEF COMPLAINTS: Fall and weakness. HISTORY OF PRESENT ILLNESS: This 79-year-old gentleman with a past medical history of multiple medical problems, including dementia, hypertension, hyperlipidemia, history of myocardial infarction, history of cardiac stent, history of Parkinson's, history of CAD/stent, being followed by Dr. Arriaga in the outpatient setting, had apparently had multiple falls. Most recently the patient's noticed that there was a sound in the bathroom, and patient lost balance apparently and fell down. The patient was taken to [facility] and admitted for further evaluation and treatment. The patient is generally weak. Patient unable to give a coherent history at this time. The patient was noted to have elevated creatinine, indicating mild acute renal failure. The patient also had multiple x-rays, including head and cervical spine, and CT scan, which did not show any acute abnormality. Thoracic spine was also done, which showed no acute abnormality. Hand x- ray showed dislocation of the middle phalanx along the proximal phalanx, third and fourth digits, and tiny avulsions were also noted. Chest x-ray, which was personally reviewed by me, showed no acute pulmonary process. A pelvic x-ray was also done which showed normal AP pelvis. Patient was admitted for further evaluation. There is no history of any fever, rigors, chills. No history of headache, loss of consciousness, seizures at this time. PAST MEDICAL HISTORY: History of of dementia, hypertension, hyperlipidemia, history of myocardial infarction, CAD, stent, cholecystectomy, Parkinson's. HOME MEDICATIONS: Home medications prior to admission include: 1. Nitrostat. 2. Flomax. 3. Riluzole. 4. Lipitor. 5. Multivitamins. 6. Toprol-XL. 7. Cozaar. 8. Levothyroxine. 9. Aricept. 10.Plavix. 11.Carbidopa L-dopa. 12.Aspirin. 13.Vitamin C. PHYSICAL EXAMINATION: Patient is alert, oriented x2. Pulse 72, pressure 133/58, respirations 16, temperature 97.6, pulse ox 96% on room air. HEENT: Conjunctivae normal. NECK: No jugular venous distention. CARDIOVASCULAR SYSTEM: S1, S2 muffled. RESPIRATORY SYSTEM: Breath sounds diminished at the bases. A few scattered rhonchi and crackles. ABDOMEN: Soft, obese, non-tender. No mass palpable. LEGS: No edema. No swelling. NERVOUS SYSTEM: Diffusely weak. Tone is increased. EXAMINATION OF THE SKIN: Multiple bruises are present. LYMPHATICS: No lymph node palpable in neck, axillae or groin. JOINTS: Dislocation, which is released on the right hand. SKIN: As mentioned earlier. LABS: WBC 8.4, hemoglobin 11.4, sodium 138, potassium 4.6. Creatinine is 1.43. ASSESSMENT: 1. Syncope and fall, possibly Parkinson's, acute exacerbation. 2. Severe gait dysfunction. 3. Rule out cardiac arrhythmia. 4. Increased creatinine with acute renal failure with prerenal acute tubular necrosis. 5. Anemia, macrocytic, possibly nutritional. 6. History of dementia. 7. Hypertension. 8. Hyperlipidemia. 9. Dislocation of the middle phalanx, third, fourth digit, reduced. 10.Coronary artery disease, stent. 11.History of pacemaker. 12.History of automated implantable cardioverter defibrillator. 13.FULL CODE. RECOMMENDATIONS AND DISCUSSION: In this 79-year-old gentleman who presented with multiple complex medical issues, we will monitor the patient closely, continue the current medications, continue symptomatic treatment. Will monitor telemetry. Cardiology and neurology consultations. Otherwise, I would recommend resuming the home medications. Monitor closely. Orthostatic vitals. Prognosis guarded because of multiple complex medical issues. Discussed with the patient and family, and they understand and agree. Further recommendations to follow. MMODL / IJN: [id number] /
[2020-02-26] MEDS: SODIUM CHLORIDE 0.9% 1,000 ML IV SCH ×2 (05:21→17:24)
[2020-02-26] MEDS: LEVOTHYROXINE 25 MCG TAB PO SCH (05:34)
[2020-02-26] MEDS: CARBIDOPA-LEVODOPA 25-100 MG 1 EACH TAB PO SCH ×3 (07:56→17:24)
[2020-02-26] MEDS: ASCORBIC ACID 500 MG TAB PO SCH (07:56)
[2020-02-26] MEDS: DONEPEZIL 10 MG TAB PO SCH (07:56)
[2020-02-26] MEDS: METOPROLOL SUCCINATE (ER) 25 MG TAB.ER.24H PO SCH (07:57)
[2020-02-26] MEDS: ASPIRIN 81 MG PO SCH (07:57)
[2020-02-26] MEDS: TAMSULOSIN 0.4 MG CAP.ER.24H PO SCH (07:57)
[2020-02-26] MEDS: PANTOPRAZOLE 40 MG TABLET PO SCH (07:57)
[2020-02-26] MEDS: HEPARIN SODIUM,PORCINE 5,000 UNIT/ML 1 ML VIAL SQ SCH ×2 (07:57→20:07)
[2020-02-26] MEDS: MULTIVITAMINS, THERA 1 EACH TAB PO SCH (07:57)
[2020-02-26] MEDS: CLOPIDOGREL 75 MG TAB PO SCH (07:57)
[2020-02-26] MEDS: RILUZOLE PO SCH (07:58)
--- NOTE | 2020-02-26 10:40 | P.CNOR ---
<Eloy Lopezdonnie Pickens - Last Filed: 02/26/20 10:40> History of Present Illness - HPI Consult date: 02/26/20 History of present illness: This is a 79-year-old male who is admitted for acute kidney injury. Patient's past medical history is significant for Parkinson's and ALS. Patient is a poor historian and there is no family present in the room. Per the emergency room n ote, the patient had a fall on 02/25/2020. Orthopedics is consulted due to dislocation of the third and fourth PIP joints. Closed reduction was performed in the emergency room and was successful. Patient denies any pain today. Review of Systems See HPI. Past Medical History Past Medical History: Dementia, Hyperlipidemia, Hypertension, Myocardial Infarction ([place]) Additional Past Medical History / Comment(s): [place] in 12/2019 with cath and stents PARKINSONS, ALS. Last Myocardial Infarction Date:: 12/2019 History of Any Multi-Drug Resistant Organisms: None Reported Past Surgical History: Appendectomy, Cholecystectomy, Heart Catheterization With Stent, Pacemaker Past Anesthesia/Blood Transfusion Reactions: No Reported Reaction Date of Last Stent Placement:: 12/2019 Type of Cardiac Device: Permanent Pacemaker, AICD Device Placement Date:: 2010 Past Psychological History: No Psychological Hx Reported Smoking Status: Never smoker Past Alcohol Use History: Occasional Past Drug Use History: None Reported - Past Family History Mother Family Medical History: Dementia Father Family Medical History: Dementia Medications and Allergies Home Medications Medication Instructions Recorded Confirmed Type Donepezil HCl [Aricept] 10 mg PO DAILY 02/21/19 02/25/20 History Metoprolol Succinate (ER) [Toprol 25 mg PO DAILY 02/21/19 02/25/20 History XL] Riluzole [Rilutek] 100 mg PO DAILY 02/21/19 02/25/20 History Tamsulosin HCl [Flomax] 0.4 mg PO DAILY 02/21/19 02/25/20 History Levothyroxine Sodium 25 mcg PO DAILY 12/15/19 02/25/20 History Ascorbic Acid [Vitamin C] 1,000 mg PO DAILY 30 Days #30 tab 12/17/19 02/25/20 Rx Aspirin 81 mg PO DAILY #30 chew 12/17/19 02/25/20 Rx Clopidogrel [Plavix] 75 mg PO DAILY #30 tab 12/17/19 02/25/20 Rx Losartan [Cozaar] 25 mg PO HS #30 tab 12/17/19 02/25/20 Rx Nitroglycerin Sl Tabs [Nitrostat] 0.4 mg SUBLINGUAL Q5M PRN #25 tab 12/17/19 Rx Atorvastatin Calcium [Lipitor] 40 mg PO W/SUPPER 02/25/20 02/25/20 History Carbidopa-Levodopa 25-100 mg 1.5 tab PO AC-TID 02/25/20 02/25/20 History [Sinemet 25-100 mg] Multivitamins, Thera [Multivitamin 1 tab PO DAILY 02/25/20 02/25/20 History (formulary)] Allergies Allergy/AdvReac Type Severity Reaction Status Date / Time No Known Allergies Allergy Verified 02/25/20 08:19 Physical Examination On exam patient is resting comfortably in bed in no acute distress. Patient is alert, but confused. Right upper extremity: There is mild swelling and ecchymosis over the third and fourth digits of the right hand. The right upper extremity is warm and well perfused. Skin is intact to the right upper extremity. Capillary refill is normal at less than 2 seconds. Sensation intact. Neurovascular status and c irculatory status are intact. Results X-rays of the right hand dated 02/25/2020 show: 1. Dislocation of the middle phalanx on the proximal phalanx third and fourth digits. 2. Tiny avulsions at the proximal interphalangeal joint space of the middle finger are not excluded. Post-reduction x-rays of the right hand show successful reduction of the third and fourth finger dislocations at the level of the PIP joints. No acute fracture is evident. Osseous structures are somewhat demineralized. - Labs Labs: Abnormal Lab Results - Last 24 Hours (Table) 02/25/20 Range/Units 09:05 Urine Protein Trace H (Negative) Urine Ketones Trace H (Negative) H & H 02/25/20 Range/Units 06:30 Hgb 11.4 L (13.0-17.5) gm/dL Hct 34.8 L (39.0-53.0) % Coagulation 02/25/20 Range/Units 06:30 INR 1.0 (<1.2) Result Diagrams: 02/25/20 06:30 02/25/20 06:30 Assessment and Plan (1) Closed dislocation of phalanx of hand Current Visit: Yes Status: Acute Code(s): S63.259A - UNSPECIFIED DISLOCATION OF UNSPECIFIED FINGER, INIT ENCNTR SNOMED Code(s): 515617827 (2) YESIKA (acute kidney injury) Current Visit: Yes Status: Acute Code(s): N17.9 - ACUTE KIDNEY FAILURE, UNSPECIFIED SNOMED Code(s): 89758610 (3) Fall Current Visit: Yes Status: Acute Code(s): W19.XXXA - UNSPECIFIED FALL, INITIAL ENCOUNTER SNOMED Code(s): 3621612 Plan: 1. No surgical intervention planned. Maintain javier loops. May remove for skin checks and hygiene. 2. Rest, ice and elevate for swelling and pain. 3. Recommend follow up as an outpatient in one week for repeat x-rays. <Mayur Davis - Last Filed: 02/27/20 13:50> Results - Labs Labs: Abnormal Lab Results - Last 24 Hours (Table) 02/27/20 02/27/20 Range/Units 09:09 09:09 RBC 3.31 L (4.30-5.90) m/uL Hgb 11.1 L (13.0-17.5) gm/dL Hct 34.5 L (39.0-53.0) % MCV 104.3 H (80.0-100.0) fL Plt Count 140 L (150-450) k/uL Chloride 111 H (98-107) mmol/L Glucose 123 H (74-99) mg/dL Calcium 8.2 L (8.4-10.2) mg/dL H & H 02/25/20 02/26/20 02/27/20 Range/Units 06:30 11:05 09:09 Hgb 11.4 L 10.5 L 11.1 L (13.0-17.5) gm/dL Hct 34.8 L 32.3 L 34.5 L (39.0-53.0) % Coagulation 02/25/20 Range/Units 06:30 INR 1.0 (<1.2) Result Diagrams: 02/27/20 09:09 02/27/20 09:09 Assessment and Plan Plan: Reviewed and agree with above (amendments/corrections noted below). The patient was subsequently seen and examined by me as well. S: The patient is pleasantly interactive but does show evidence of confusion. He states that he does recall the fall: he got dizzy - just for a moment but "that was all it took" and he fell. O: Appropriate edema around the middle and ring finger PIP joints. No gross malalignment. He is able to perform active flexion and extension with minimal discomfort. Moderate tenderness to palpation, particularly along the collaterals. No gross laxity with gentle passive hyperextension stress. Mild to moderate laxity with RCL collateral stress of both digits, worse in the ring finger. There is a soft endpoint with stress of the middle finger RCL. No significant laxity with UCL stress. No clicking or crepitus with active or passive motion. A: Acute traumatic dislocations of the right ring and small finger PIP joints with grade 2-3 radial collateral ligament tears Multiple medical comorbidities P: Both joints show good stability. Recommended maintaining javier loops with the middle and ring fingers secured together and the middle finger secured to the index finger for additional protection. Encourage active and passive ROM. Follow up outpatient in 7-10 days. Thank you for allowing us to participate in the care of this patient. Mayur Davis D.O. [facility]
[2020-02-26 11:25] LABS: Basophils % (A) 0 %; Eosinophils % (A) 1 %; HCT 32.3 % (39.0-53.0); HGB 10.5 gm/dL (13.0-17.5); Lymphocytes # (A) 1.4 k/uL (1.0-4.8); Lymphocytes % (A) 21 %; MCH 33.4 pg (25.0-35.0); MCHC 32.4 g/dL (31.0-37.0); MCV 103.3 fL (80.0-100.0); Macrocytosis Slight; Mean Platelet Volume 8.9; Monocytes # (A) 0.3 k/uL (0-1.0); Monocytes % (A) 4 %; Neutrophils # (A) 4.9 k/uL (1.3-7.7); Neutrophils % (A) 73 %; Platelet Count 144 k/uL (150-450); RBC 3.13 m/uL (4.30-5.90); RDW 12.7 % (11.5-15.5); WBC 6.8 k/uL (3.8-10.6)
[2020-02-26 11:37] LABS: Calcium 7.8 mg/dL (8.4-10.2); Potassium 4.4 mmol/L (3.5-5.1)
--- NOTE | 2020-02-26 12:27 | P.CRDCN ---
History of Present Illness History of present illness: HISTORY OF PRESENTING ILLNESS This is a pleasant 79-year-old male past medical history significant for coronary artery disease status post recent PCI, hypertension, dyslipidemia, non-STEMI December 2019, ALS, paroxysmal atrial fibrillation, permanent pacemaker implantation secondary to sick sinus syndrome and Parkinson's disease. He follows in the office with Dr. Gates. He is brought to the emergency department by his secondary to a fall at home. He is a poor historian. Information is obtained from his at the bedside. The patient's is quite tearful and upset. She states that her is falling more and more frequently. She is struggling with how to move forward. Her does not wish to be in a nursing facility and she would like to take care of him at home as much as possible. The patient is seen and examined resting comfortably laying flat in bed in no acute distress. He denies all symptoms of chest pain, shortness of breath, dizziness or palpitations. He is unable to verbalize what happened yesterday surrounding his fall. The states he did not lose consciousness. In December 2019 he suffered a non-ST elevated myocardial in farction underwent cardiac catheterization revealing a lesion in the LAD as well as the circumflex. He underwent successful PCI of the LAD at that time and is maintained on dual antiplatelet therapy. Most recent echocardiogram obtained in December 2019 revealed preserved LV systolic function with ejection fraction 55- 60%. DIAGNOSTICS EKG reveals ventricular paced rhythm. Chest xray negative for any acute cardiopulmonary process. Other imaging reveals he had a closed dislocation of the phalanx of the hand. He has been seen by orthopedics and they recommend no surgical intervention at this time. Laboratory reviewed, WBC 6.8, hemoglobin 10.5, platelets 144, sodium 138, potassium 4.4, creatinine 1.02, magnesium 2.4 and cardiac enzymes negative 1. Current cardiac medications include aspirin 81 mg daily, Plavix 75 mg daily, losartan 25 mg daily, Toprol 25 mg daily and atorvastatin 40 mg. REVIEW OF SYSTEMS At the time of my exam: CONSTITUTIONAL: Denies fever or chills. CARDIOVASCULAR: Denies chest pain, shortness of breath, orthopnea, PND or palpitations. RESPIRATORY: Denies cough. GASTROINTESTINAL: Denies abdominal pain, diarrhea, constipation, nausea or vomiting. MUSCULOSKELETAL: Denies myalgias. NEUROLOGIC: Denies numbness, tingling or weakness. ENDOCRINE: Denies fatigue, weight change, polydipsia or polyurina. GENITOURINARY: Denies burning, hematuria or urgency with micturation. HEMATOLOGIC: Denies history of anemia or bleeding. PHYSICAL EXAMINATION Blood pressure 94/60 heart rate 65 afebrile and maintaining oxygen saturation on room air. CONSTITUTIONAL: No apparent distress. HEENT: Head is normocephalic. Pupils are equal, round. Sclerae anicteric. Mucous membranes of the mouth are moist. No JVD. No carotid bruit. CHEST EXAMINATION: Lungs are clear to auscultation. No chest wall tenderness is noted on palpation or with deep breathing. HEART EXAMINATION: Regular rate and rhythm. S1, S2 heard. No murmurs, gallops or rub. ABDOMEN: Soft, nontender. Positive bowel sounds. EXTREMITIES: 2+ peripheral pulses, no lower extremity edema and no calf tenderness. NEUROLOGIC EXAMINATION: Patient is awake, alert and oriented, not communicating. ASSESSMENT Fall Parkinson's disease Coronary artery disease status post recent PCI maintained on dual antiplatelet therapy Paroxysmal atrial fibrillation Sick sinus syndrome status post permanent pacemaker implantation Hypertension Dyslipidemia PLAN Losartan has been held since admission secondary to hypotension. Continue dual antiplatelet therapy secondary to recent PCI. Echocardiogram has been ordered by the primary care service and will be reviewed. Ongoing medical management and evaluation. No further cardiac work-up. Prognosis guarded. We will follow as needed, please call with further questions of concerns. Thank you kindly for this consultation. Nurse Practitioner note has been reviewed, I agree with a documented findings and plan of care. Patient was seen and examined. Past Medical History Past Medical History: Dementia, Hyperlipidemia, Hypertension, Myocardial Infarction ([place]) Additional Past Medical History / Comment(s): [place] in 12/2019 with cath and stents PARKINSONS, ALS. Last Myocardial Infarction Date:: 12/2019 History of Any Multi-Drug Resistant Organisms: None Reported Past Surgical History: Appendectomy, Cholecystectomy, Heart Catheterization With Stent, Pacemaker Past Anesthesia/Blood Transfusion Reactions: No Reported Reaction Date of Last Stent Placement:: 12/2019 Type of Cardiac Device: Permanent Pacemaker, AICD Device Placement Date:: 2010 Past Psychological History: No Psychological Hx Reported Smoking Status: Never smoker Past Alcohol Use History: Occasional Past Drug Use History: None Reported - Past Family History Mother Family Medical History: Dementia Father Family Medical History: Dementia Medications and Allergies Home Medications Medication Instructions Recorded Confirmed Type Donepezil HCl [Aricept] 10 mg PO DAILY 02/21/19 02/25/20 History Metoprolol Succinate (ER) [Toprol 25 mg PO DAILY 02/21/19 02/25/20 History XL] Riluzole [Rilutek] 100 mg PO DAILY 02/21/19 02/25/20 History Tamsulosin HCl [Flomax] 0.4 mg PO DAILY 02/21/19 02/25/20 History Levothyroxine Sodium 25 mcg PO DAILY 12/15/19 02/25/20 History Ascorbic Acid [Vitamin C] 1,000 mg PO DAILY 30 Days #30 tab 12/17/19 02/25/20 Rx Aspirin 81 mg PO DAILY #30 chew 12/17/19 02/25/20 Rx Clopidogrel [Plavix] 75 mg PO DAILY #30 tab 12/17/19 02/25/20 Rx Losartan [Cozaar] 25 mg PO HS #30 tab 12/17/19 02/25/20 Rx Nitroglycerin Sl Tabs [Nitrostat] 0.4 mg SUBLINGUAL Q5M PRN #25 tab 12/17/19 02/25/20 Rx Atorvastatin Calcium [Lipitor] 40 mg PO W/SUPPER 02/25/20 02/25/20 History Carbidopa-Levodopa 25-100 mg 1.5 tab PO AC-TID 02/25/20 02/25/20 History [Sinemet 25-100 mg] Multivitamins, Thera [Multivitamin 1 tab PO DAILY 02/25/20 02/25/20 History (formulary)] Allergies Allergy/AdvReac Type Severity Reaction Status Date / Time No Known Allergies Allergy Verified 02/25/20 08:19 Physical Exam Vitals: Vital Signs Temp Pulse Pulse Resp BP BP Pulse Ox 02/26/20 07:00 98.7 F 65 16 94/60 96 02/26/20 01:20 98.5 F 60 20 91/53 95 02/25/20 23:00 98.2 F 65 20 112/59 95 02/25/20 17:30 97.8 F 65 18 129/92 96 02/25/20 16:29 16 02/25/20 14:26 97.6 F 72 16 133/58 96 Intake and Output 02/25/20 02/26/20 02/26/20 22:59 06:59 14:59 Intake Total 0 25 200 Output Total 400 400 Balance 0 -375 -200 Intake: Oral 0 25 200 Output: Urine 400 400 Uretheral (Hassan) 400 Other: Voiding Method Indwelling Catheter Indwelling Catheter Results 02/26/20 11:05 02/26/20 11:05 CBC 02/26/20 Range/Units 11:05 WBC 6.8 (3.8-10.6) k/uL RBC 3.13 L (4.30-5.90) m/uL Hgb 10.5 L (13.0-17.5) gm/dL Hct 32.3 L (39.0-53.0) % Plt Count 144 L (150-450) k/uL Comprehensive Metabolic Panel 02/26/20 Range/Units 11:05 Sodium 138 (137-145) mmol/L Potassium 4.4 (3.5-5.1) mmol/L Chloride 112 H (98-107) mmol/L Carbon Dioxide 23 (22-30) mmol/L BUN 22 H (9-20) mg/dL Creatinine 1.02 (0.66-1.25) mg/dL Glucose 111 H (74-99) mg/dL Calcium 7.8 L (8.4-10.2) mg/dL Current Medications Generic Name Dose Route Start Last Admin Trade Name Freq PRN Reason Stop Dose Admin Hydrocodone Bitart/Acetaminophen 1 each 02/25/20 16:52 Plato 5-325 PO Q6HR PRN Pain Alprazolam 0.25 mg 02/25/20 16:52 Xanax PO TID PRN Anxiety Ascorbic Acid 1,000 mg 02/26/20 09:00 02/26/20 07:56 Vitamin C PO 1,000 mg DAILY KANDACE Administration Aspirin 81 mg 02/26/20 09:00 02/26/20 07:57 Aspirin PO 81 mg DAILY KANDACE Administration Atorvastatin Calcium 40 mg 02/25/20 20:00 02/25/20 21:48 Lipitor PO 40 mg W/SUPPER KANDACE Administration Carbidopa/Levodopa 1.5 each 02/25/20 20:00 02/26/20 07:56 Sinemet 25-100 PO 1.5 each AC-TID KANDACE Administration Clopidogrel Bisulfate 75 mg 02/26/20 09:00 02/26/20 07:57 Plavix PO 75 mg DAILY KANDACE Administration Donepezil HCl 10 mg 02/26/20 09:00 02/26/20 07:56 Aricept PO 10 mg DAILY [facility] Administration Folic Acid 1 mg 02/26/20 12:00 Folic Acid PO DAILY@1200 [facility] Heparin Sodium (Porcine) 5,000 unit 02/25/20 21:00 02/26/20 07:57 Heparin SQ 5,000 unit Q12HR [facility] Administration Hydromorphone HCl 0.5 mg 02/25/20 16:52 Dilaudid IVP Q6HR PRN Severe Pain Sodium Chloride 1,000 mls @ 100 mls/hr 02/25/20 10:15 02/26/20 05:21 Saline 0.9% IV Not Given .Q10H [facility] Levothyroxine Sodium 25 mcg 02/26/20 06:30 02/26/20 05:34 Synthroid PO 25 mcg DAILY@0630 [facility] Administration Metoprolol Succinate 25 mg 02/26/20 09:00 02/26/20 07:57 Toprol Xl PO Not Given DAILY [facility] Multivitamins 1 each 02/26/20 09:00 02/26/20 07:57 Theragran PO 1 each DAILY [facility] Administration Nitroglycerin 0.4 mg 02/25/20 16:08 Nitrostat SUBLINGUAL Q5M PRN Chest Pain Non-Formulary Medication 100 mg 02/26/20 09:00 02/26/20 07:58 Riluzole [Rilutek] PO Not Given DAILY [facility] Pantoprazole Sodium 40 mg 02/26/20 07:30 02/26/20 07:57 Protonix PO 40 mg AC-BRKFST [facility] Administration Tamsulosin HCl 0.4 mg 02/26/20 09:00 02/26/20 07:57 Flomax PO 0.4 mg DAILY [facility] Administration Thiamine HCl 100 mg 02/26/20 12:00 Vitamin B-1 PO DAILY@1200 [facility] Intake and Output 02/25/20 02/26/20 02/26/20 22:59 06:59 14:59 Intake Total 0 25 200 Output Total 400 400 Balance 0 -375 -200 Intake: Oral 0 25 200 Output: Urine 400 400 Uretheral (Hassan) 400 Other: Voiding Method Indwelling Catheter Indwelling Catheter 02/26/20 11:05 02/26/20 11:05
[2020-02-26] MEDS: FOLIC ACID 1 MG TAB PO SCH (12:31)
[2020-02-26] MEDS: THIAMINE 100 MG TAB PO SCH (12:31)
--- NOTE | 2020-02-26 12:31 | ECHOF ---
Referral Reason:Stroke MEASUREMENTS -------- HEIGHT: 167.6 cm WEIGHT: 59.0 kg BP: IVSd: 1.4 cm (0.6 - 1.1) LVIDd: 2.9 cm (3.9 - 5.3) LVPWd: 1.4 cm (0.6 - 1.1) IVSs: 1.9 cm LVIDs: 1.9 cm LVPWs: 1.4 cm LAESV Index (A-L): 14.63 ml/m Ao Diam: 2.6 cm (2.0 - 3.7) AV Cusp: 1.7 cm (1.5 - 2.6) LA Diam: 2.5 cm (2.7 - 3.8) MV EXCURSION: 14.967 mm (> 18.000) MV EF SLOPE: 51 mm/s (70 - 150) EPSS: 0.9 cm MV E Harmeet: 0.57 m/s MV DecT: 213 ms MV A Harmeet: 0.53 m/s MV E/A Ratio: 1.06 AR PHT: 1300 ms RAP: 5.00 mmHg RVSP: 19.05 mmHg FINDINGS -------- Paced rhythm. Pacerwire seen in RV and RA. This was a technically adequate study. The left ventricular size is normal. There is moderate concentric left ventricular hypertrophy. O verall left ventricular systolic function is normal with, an EF between 55 - 60 %. Left ventricular fillimg pressure cannot be estimated due to paced rhythm. The right ventricle is normal in size. The left atrial size is normal. Normal LA size by volume 22+/-6 ml/m2. The right atrial size is normal. The aortic valve is trileaflet and appears structurally normal. There is mild aortic regurgitation. The mitral valve is normal. The mitral valve leaflets are mildly thickened. Mild mitral regurgita tion is present. The tricuspid valve appears structurally normal. Mild tricuspid regurgitation present. Right vent ricular systolic pressure is normal at < 35 mmHg. There is no pulmonic regurgitation present. The aortic root size is normal. IVC Not well visulized. There is no pericardial effusion. CONCLUSIONS -------- 1. Paced rhythm. 2. Pacerwire seen in RV and RA. 3. This was a technically adequate study. 4. The left ventricular size is normal. 5. There is moderate concentric left ventricular hypertrophy. 6. Overall left ventricular systolic function is normal with, an EF between 55 - 60 %. 7. Left ventricular fillimg pressure cannot be estimated due to paced rhythm. 8. The right ventricle is normal in size. 9. The left atrial size is normal. 10. Normal LA size by volume 22+/-6 ml/m2. 11. The right atrial size is normal. 12. The aortic valve is trileaflet and appears structurally normal. 13. There is mild aortic regurgitation. 14. The mitral valve is normal. 15. The mitral valve leaflets are mildly thickened. 16. Mild mitral regurgitation is present. 17. The tricuspid valve appears structurally normal. 18. Mild tricuspid regurgitation present. 19. Right ventricular systolic pressure is normal at < 35 mmHg. 20. There is no pulmonic regurgitation present. 21. The aortic root size is normal. 22. IVC Not well visulized. 23. There is no pericardial effusion. SADDLE MECHANIC: Joseline Durbin RDCS
[2020-02-26 13:34] VITALS: BMI 20.9
[2020-02-26] MEDS: ATORVASTATIN 40 MG TAB PO SCH (17:24)
--- NOTE | 2020-02-26 21:43 | PN ---
PROGRESS NOTE DATE OF SERVICE: 02/26/2020 This 79-year-old gentleman who was admitted with syncope and fall had possible parkinsonian exacerbation also. The patient has renal failure. The patient is on IV fluids. Patient also had dislocation of fingers and Orthopedics is following the patient closely. Patient is being closely monitored. Past medical history reviewed. REVIEW OF SYSTEMS: CARDIOVASCULAR SYSTEM: No angina, palpitations. RESPIRATORY SYSTEM: As mentioned earlier. GI: No nausea, vomiting. : No dysuria or retention. NERVOUS SYSTEM: No numbness, weakness. CURRENT MEDICATIONS: Reviewed. They include [place], Xanax, vitamin C, aspirin, Lipitor, Sinemet, Plavix, Aricept, folic acid, heparin, Dilaudid, Synthroid, Toprol-XL, multivitamins, Nitrostat, Protonix, Flomax, vitamin B1. Doses are reviewed. PHYSICAL EXAMINATION: Patient alert and oriented x3. Pulse 65, blood pressure 144/79, respiration 17, temperature 97.6. No orthostatic changes. Pulse ox 98% on room air. HEENT: Conjunctivae normal. Oral mucosa moist. NECK: No jugular venous distention. No carotid bruit. No lymph node enlargement. CARDIOVASCULAR SYSTEM: S1, S2 muffled. RESPIRATORY SYSTEM: Breath sounds diminished at the bases. A few scattered rhonchi. ABDOMEN: Soft, non-tender. LEGS: No edema. No swelling. NERVOUS SYSTEM: Diffusely weak. Tremors and parkinsonian features. LABS: WBC 6.3, hemoglobin 10.5, creatinine is noted. The cultures are negative so far. ASSESSMENT: 1. Syncope and fall, possibly Parkinson's disease, acute exacerbation. 2. Severe gait dysfunction. 3. Rule out cardiac arrhythmia. 4. Increased creatinine with acute renal failure with prerenal acute tubular necrosis and dehydration, present on admission. 5. Anemia, macrocytic, possibly nutritional. 6. History of dementia. 7. Hypertension. 8. Hyperlipidemia. 9. Dislocation of the middle phalanx of third and fourth digits, reduced. 10.Coronary artery disease, stent. 11.History of pacemaker. 12.History of automated implantable cardioverter defibrillator. 13.NO CODE, NO CPR, NO VENT. RECOMMENDATIONS AND DISCUSSION: In this 79-year-old woman who presented with multiple complex medical issues, we will monitor the patient closely, continue the current medications, continue with symptomatic treatment. Otherwise at this time PT/OT evaluation. Evaluate for possible ECF rehab. The UA did not show any acute abnormality. COVID-19 was negative. Prognosis is guarded because of multiple complex medical issues. Further recommendations to follow. MMODL / IJN: [id number] /
--- NOTE | 2020-02-26 21:57 | P.CNNES ---
History of Present Illness Consult date: 02/26/20 Reason for Consult: evaluation of Parkinson's disease and overall neurological status Chief complaint: 2 falls within 1 week progressive memory loss dementia History of Present Illness: this is a new neurology consult requested for further advice and recommendations for Mr. Hairston a 79-year-old gentleman who was brought to the emergency room via EMS after having 2 falls this week. The patient was a poor historian. Most of the history was provided by his . His reports that this past week he had a fall on Saturday and then again on . Prior to this though he has been ambulating and not had many issues with falling. He was diagnosed with Parkinson's disease several years ago and was followed by Dr. Mo outpatient neurologist in the area. She reports that that neurologist felt that there was another diagnosis other than Parkinson's disease and referred him to Dr. Francis Adams at [facility] who diagnosed him with ALS 4 years ago. He is on that medication that is used for ALS currently. However he has not had any consistent pulmonary follow-up and is not on any BiPAP device. It is been very difficult for his to have consistent follow-up with the doctor at [facility] subsequently he's not really been followed by anyone here over the last year and a half. His reports that over this past year that he is becoming more and more demented. Often he will forget who she is he forgets his son and he does not know where he is. His orientation is only to himself. His reports that both his mother and maternal uncle both of complications of Parkinson's disease and were both diagnosed in the early 60s with Parkinson's similar to him. His reports that at home he is very sedentary and will sleep most of the day. She attributes this to the Sinemet and riluzole. On this admission he was found to have significant dehydration acute kidney i njury which is now resolving. On this most recent fall he did injure his hand. Currently his is requesting him to be placed in a subacute rehab due to difficulty with taking care of him and with the hopes that he will have more motivation to be involved with physical therapy. Past Medical History Past Medical History: Dementia, Hyperlipidemia, Hypertension, Myocardial Infarction ([place]) Additional Past Medical History / Comment(s): [place] in 12/2019 with cath and stents PARKINSONS, ALS. Last Myocardial Infarction Date:: 12/2019 History of Any Multi-Drug Resistant Organisms: None Reported Past Surgical History: Appendectomy, Cholecystectomy, Heart Catheterization With Stent, Pacemaker Past Anesthesia/Blood Transfusion Reactions: No Reported Reaction Date of Last Stent Placement:: 12/2019 Type of Cardiac Device: Permanent Pacemaker, AICD Device Placement Date:: 2010 Past Psychological History: No Psychological Hx Reported Smoking Status: Never smoker Past Alcohol Use History: Occasional Past Drug Use History: None Reported - Past Family History Mother Family Medical History: Dementia Father Family Medical History: Dementia Medications and Allergies Home Medications Medication Instructions Recorded Confirmed Type Donepezil HCl [Aricept] 10 mg PO DAILY 02/21/19 02/25/20 History Metoprolol Succinate (ER) [Toprol 25 mg PO DAILY 02/21/19 02/25/20 History XL] Riluzole [Rilutek] 100 mg PO DAILY 02/21/19 02/25/20 History Tamsulosin HCl [Flomax] 0.4 mg PO DAILY 02/21/19 02/25/20 History Levothyroxine Sodium 25 mcg PO DAILY 12/15/19 02/25/20 History Ascorbic Acid [Vitamin C] 1,000 mg PO DAILY 30 Days #30 tab 12/17/19 02/25/20 Rx Aspirin 81 mg PO DAILY #30 chew 12/17/19 02/25/20 Rx Clopidogrel [Plavix] 75 mg PO DAILY #30 tab 12/17/19 02/25/20 Rx Losartan [Cozaar] 25 mg PO HS #30 tab 12/17/19 02/25/20 Rx Nitroglycerin Sl Tabs [Nitrostat] 0.4 mg SUBLINGUAL Q5M PRN #25 tab 12/17/19 Rx Atorvastatin Calcium [Lipitor] 40 mg PO W/SUPPER 02/25/20 02/25/20 History Carbidopa-Levodopa 25-100 mg 1.5 tab PO AC-TID 02/25/20 02/25/20 History [Sinemet 25-100 mg] Multivitamins, Thera [Multivitamin 1 tab PO DAILY 02/25/20 02/25/20 History (formulary)] Allergies Allergy/AdvReac Type Severity Reaction Status Date / Time No Known Allergies Allergy Verified 02/25/20 08:19 Physical Examination - Vital Signs Vital Signs: Vital Signs Temp Pulse Resp BP BP BP BP 02/26/20 19:41 17 02/26/20 19:15 98.6 F 68 22 123/62 02/26/20 16:51 97.6 F 65 17 134/79 108/70 147/80 134/79 02/26/20 15:00 98.0 F 65 16 92/59 02/26/20 07:00 98.7 F 65 16 94/60 02/26/20 01:20 98.5 F 60 20 91/53 02/25/20 23:00 98.2 F 65 20 112/59 Pulse Ox 02/26/20 19:41 02/26/20 19:15 96 02/26/20 16:51 98 02/26/20 15:00 96 02/26/20 07:00 96 02/26/20 01:20 95 02/25/20 23:00 95 Intake and Output 02/26/20 02/26/20 02/26/20 06:59 14:59 22:59 Intake Total 25 200 Output Total 400 600 Balance -375 -400 Intake: Oral 25 200 Output: Urine 400 600 Uretheral (Hassan) 400 Other: Voiding Method Indwelling Catheter Indwelling Catheter # Voids 1 1 Weight 59 kg Gen. exam Appearance: No acute distress H ENT: Clear sclera clear oropharynx neck is supple. Fletcher rashes noted over the face. Chest: Decreased breath sounds in the upper and lower bases. Cardiac: Regular rate and rhythm no murmurs noted. Pulses: Radial pedal pulses are equal and symmetric. Skin: There is multiple bruises noted over the left arm. Extremities: No edema noted in the hands or feet. Neurologic exam Mental status patient has flat affect decreased verbal output. Answers most questions appropriately. Speech is very slow slightly hypophonic but fluent. pupils: 2 mm equally reactive to light and accommodation. Cranial nerve examinationtracks well. Slightly slow sick Caddick movements noted. There is mild flattening of the left nasolabial fold. V1 through V3 is symmetric. Cranial nerve VIII is intact as are patient. Palate elevates symmetrically. Gag reflex is intact. Shoulder shrug is symmetric. Tongue is midline without fasciculations or deviation. Motor examination generalized weakness noted. Hypotonia throughout. Patient is able to move both arms above his shoulders and sustain that. Occasionally there is a mild resting tremor noted in the right hand. Patient has significant weakness in the lower extremities. He is able to only keep and maintain both legs by 30 for less than 5 seconds before drift occurs. Deep tendon reflexes trace over biceps brachial radialis. Patellar reflexes are absent bilaterally. No ankle jerks are elicited. There are 2-3 beats ankle clonus noted on the right. Sensory examination grossly intact to light touch throughout. Vibratory sense is intact in the feet bilaterally. Gait examination deferred Results - Laboratory Findings CBC and BMP: 02/26/20 11:05 02/26/20 11:05 Abnormal Lab Findings: Abnormal Labs 02/25/20 02/25/20 02/25/20 06:30 06:30 06:30 RBC 3.35 L Hgb 11.4 L Hct 34.8 L MCV 103.7 H Plt Count APTT 20.6 L Chloride BUN 32 H Creatinine 1.43 H Glucose 103 H Calcium Magnesium 2.4 H Creatine Kinase 349 H Urine Protein Urine Ketones 02/25/20 02/26/20 02/26/20 09:05 11:05 11:05 RBC 3.13 L Hgb 10.5 L Hct 32.3 L MCV 103.3 H Plt Count 144 L APTT Chloride 112 H BUN 22 H Creatinine Glucose 111 H Calcium 7.8 L Magnesium Creatine Kinase Urine Protein Trace H Urine Ketones Trace H Assessment and Plan Assessment: This is a 79-year-old gentleman who clinically appears to have Parkinson's disease he has a very flat affect mild resting tremor. He has a presumed diagnosis of ALS. Very poor follow up neurologically over the last year and a half. Based on my assessment this patient has progressive end stage of Parkinson's and dementia now occurring. I'm recommending that a subacute rehab placement be appropriate. I also provided his the name of several neurologist in particular Dr. Gino Vazquez to establish care with. Dr. Vazquez i s very close to where she resides. This patient also should have a pulmonary consult while in-house and also establish pulmonary care as an outpatient. If indeed this patient has ALS he needs to be closely followed by clinical pharmacy specialist. Most patients with ALS will usually require at this stage BiPAP level device or even negative positive pressure ventilation. Would recommend PT and OT continue to work with the patient during this admission. Would recommend keeping on current dose of Sinemet and medication for ALS. continue on current dose of Aricept for dementia. If no contraindication an MRI of the brain during this admission could be helpful and provided additional information to the neurologist that will be following up with him as an outpatient. This MRI can be done without contrast. Thank you for this consultation. Please note that neurology will not be available this weekend. If there is any acute clinical change please consider transferring this patient to higher level care. Ada Trevizo M.D. Board Certified in Neurology and Sleep Medicine
[2020-02-27] MEDS: SODIUM CHLORIDE 0.9% 1,000 ML IV SCH ×3 (03:32→20:02)
[2020-02-27] MEDS: LEVOTHYROXINE 25 MCG TAB PO SCH (05:57)
[2020-02-27] MEDS: HEPARIN SODIUM,PORCINE 5,000 UNIT/ML 1 ML VIAL SQ SCH ×2 (08:48→20:02)
[2020-02-27] MEDS: CLOPIDOGREL 75 MG TAB PO SCH (08:49)
[2020-02-27] MEDS: METOPROLOL SUCCINATE (ER) 25 MG TAB.ER.24H PO SCH (08:49)
[2020-02-27] MEDS: MULTIVITAMINS, THERA 1 EACH TAB PO SCH (08:49)
[2020-02-27] MEDS: DONEPEZIL 10 MG TAB PO SCH (08:49)
[2020-02-27] MEDS: CARBIDOPA-LEVODOPA 25-100 MG 1 EACH TAB PO SCH ×3 (08:49→17:59)
[2020-02-27] MEDS: ASPIRIN 81 MG PO SCH (08:49)
[2020-02-27] MEDS: TAMSULOSIN 0.4 MG CAP.ER.24H PO SCH (08:49)
[2020-02-27] MEDS: ASCORBIC ACID 500 MG TAB PO SCH (08:49)
[2020-02-27] MEDS: PANTOPRAZOLE 40 MG TABLET PO SCH (08:49)
[2020-02-27] MEDS: RILUZOLE PO SCH (09:05)
[2020-02-27 09:43] LABS: Basophils % (A) 0 %; Eosinophils # (A) 0.1 k/uL (0-0.7); Eosinophils % (A) 1 %; HCT 34.5 % (39.0-53.0); HGB 11.1 gm/dL (13.0-17.5); Lymphocytes # (A) 1.6 k/uL (1.0-4.8); Lymphocytes % (A) 22 %; MCH 33.6 pg (25.0-35.0); MCHC 32.3 g/dL (31.0-37.0); MCV 104.3 fL (80.0-100.0); Macrocytosis Slight; Mean Platelet Volume 8.2; Monocytes # (A) 0.3 k/uL (0-1.0); Monocytes % (A) 4 %; Neutrophils # (A) 5.2 k/uL (1.3-7.7); Neutrophils % (A) 72 %; Platelet Count 140 k/uL (150-450); RBC 3.31 m/uL (4.30-5.90); RDW 12.9 % (11.5-15.5); WBC 7.2 k/uL (3.8-10.6)
[2020-02-27 09:55] LABS: Calcium 8.2 mg/dL (8.4-10.2); Potassium 3.9 mmol/L (3.5-5.1)
[2020-02-27] MEDS: FOLIC ACID 1 MG TAB PO SCH (12:15)
[2020-02-27] MEDS: THIAMINE 100 MG TAB PO SCH (12:15)
[2020-02-27] MEDS: ATORVASTATIN 40 MG TAB PO SCH (17:59)
--- NOTE | 2020-02-27 21:02 | P.PN ---
Progress Note - Text Progress Note Date: 02/27/20 The patient was seen and examined. His was present at the bedside. She states that the javier loops were lost - she admits that he has a tendency to pick at things. They tried javier taping but he was unable to tolerate this. She does not feel that he is experiencing much pain in the hand. Exam: Appropriate tenderness to palpation. Mild to moderate edema around the PIP joints. Excellent active motion. Very good stability overall with expected RCL laxity with collateral stress. Assessment: Traumatic dislocations of the right middle and ring finger PIP joints with grade 2-3 radial collateral ligament tears status post closed reduction on 02/25/20. Plan: I discussed the clinical findings in detail with the patient and his . The fingers demonstrate excellent stability. Javier tape was reapplied. It is most important to keep the middle and ring fingers together. If he is unable to tolerate this, it is okay to leave them off. We discussed potential for redislocation but I do not for see this unless he begins using it much more vigorously than his reported baseline. Discussed the expectation for stiffness and loss of motion. Demonstrated active and passive motion exercises. The patient was previously living at home with his but she has made the "difficult decision" to transfer him to a [facility]. We can certainly see him in the office for outpatient followup; however, if the facility has the ability to do so, they may instead choose to schedule a telehealth video appointment in 7-10 days. We will sign off at this time. Please contact us with any questions or concerns. Thank you. Mayur Davis D.O. [facility]
--- NOTE | 2020-02-27 22:02 | PN ---
PROGRESS NOTE DATE OF SERVICE: 02/27/2020 This 79-year-old gentleman was admitted with syncope and fall, also had Parkinson's acute exacerbation. Patient also being evaluated for cardiac arrhythmias. Also had 2D echo with Doppler done by Cardiology which showed ejection fraction 55- 60% and minimal valvular abnormalities also. The patient is being closely monitored. PT/OT is evaluating the patient and ECF rehab is also being considered. Neurology has seen the patient and recommend Pulmonary consult. PAST MEDICAL HISTORY: Reviewed. REVIEW OF SYSTEMS: Could not be taken, the patient is confused. CURRENT MEDICATIONS: 1. Fowler 5 mg q.6 p.r.n. 2. Xanax 0.5 t.i.d. 3. Vitamin C 1000 mg daily. 4. Aspirin 81. 5. Lipitor temp 40 mg. 6. Carbidopa levodopa ( ) daily t.i.d. 7. Plavix. 8. Aricept. 9. Folic acid. 10.Heparin. 11.Dilaudid. 12.Toprol XL. 13.Nitrostat. 14.Protonix. 15.Flomax. 16.Vitamin B1. PHYSICAL EXAM: Patient is alert, oriented. Pulse is 63, blood pressure 106/61, respirations 16, temperature 98.4, pulse ox 98% on room air HEENT: Conjunctivae normal. Oral mucosa moist. NECK: No jugular venous distention. No lymph node enlargement. CARDIOVASCULAR: S1, S2, muffled. No S3, no S4, RESPIRATORY: Diminished breath sounds at the bases. Bilateral scattered rhonchi and crackles. ABDOMEN: Soft, nontender. LEGS: No edema. NERVOUS SYSTEM: No focal deficits. LAB STUDIES: WBC ( ), hemoglobin 11.1, MCV 104, and glucose 123. ASSESSMENT: 1. Syncope and fall, possibly Parkinson disease acute exacerbation. 2. Severe gait dysfunction. 3. Rule out cardiac arrhythmia. 4. Increased creatinine with acute renal failure with prerenal acute tubular necrosis and dehydration, present on admission. 5. Anemia, normocytic, possibly nutrition. 6. History of dementia. 7. Hypertension. 8. Hyperlipidemia. 9. Dislocation of the middle phalanx of the 3rd and 4th digit, reduced. 10.Coronary artery disease, stent. 11.History of pacemaker. 12.History of AICD. 13.NO CODE, NO CPR, NO VENT. RECOMMENDATIONS AND DISCUSSION: I recommend to continue current medications, continue to monitor, symptomatic treatment. Otherwise, at this time I would recommend cautious hydration, PT/OT evaluation, possible ECF rehab. Guarded prognosis. Further recommendations to follow. CANDICEL / IJN: [id number] /
[2020-02-28] MEDS: LEVOTHYROXINE 25 MCG TAB PO SCH (05:32)
[2020-02-28] MEDS: SODIUM CHLORIDE 0.9% 1,000 ML IV SCH ×2 (06:17→17:38)
[2020-02-28 08:16] LABS: Basophils % (A) 0 %; Eosinophils # (A) 0.1 k/uL (0-0.7); Eosinophils % (A) 2 %; HCT 34.5 % (39.0-53.0); HGB 11.4 gm/dL (13.0-17.5); Lymphocytes # (A) 1.5 k/uL (1.0-4.8); Lymphocytes % (A) 20 %; MCH 34.3 pg (25.0-35.0); MCHC 33.1 g/dL (31.0-37.0); MCV 103.6 fL (80.0-100.0); Macrocytosis Slight; Mean Platelet Volume 8.6; Monocytes # (A) 0.3 k/uL (0-1.0); Monocytes % (A) 5 %; Neutrophils # (A) 5.4 k/uL (1.3-7.7); Neutrophils % (A) 73 %; Platelet Count 136 k/uL (150-450); RBC 3.33 m/uL (4.30-5.90); RDW 12.9 % (11.5-15.5); WBC 7.4 k/uL (3.8-10.6)
[2020-02-28 08:39] LABS: African American GFR (CKD) >90 (>60 ml/min/1.73 sqM); Anion Gap 3 mmol/L; Blood Urea Nitrogen 21 mg/dL (9-20); Calcium 8.2 mg/dL (8.4-10.2); Carbon Dioxide 20 mmol/L (22-30); Chloride 114 mmol/L (98-107); Glucose 91 mg/dL (74-99); Non-African American GFR(CKD) 81 (>60 ml/min/1.73 sqM); Potassium 4.3 mmol/L (3.5-5.1); Sodium 137 mmol/L (137-145)
[2020-02-28] MEDS: CLOPIDOGREL 75 MG TAB PO SCH (08:47)
[2020-02-28] MEDS: ASPIRIN 81 MG PO SCH (08:47)
[2020-02-28] MEDS: PANTOPRAZOLE 40 MG TABLET PO SCH (08:47)
[2020-02-28] MEDS: ASCORBIC ACID 500 MG TAB PO SCH (08:47)
[2020-02-28] MEDS: THIAMINE 100 MG TAB PO SCH (08:48)
[2020-02-28] MEDS: DONEPEZIL 10 MG TAB PO SCH (08:48)
[2020-02-28] MEDS: TAMSULOSIN 0.4 MG CAP.ER.24H PO SCH (08:48)
[2020-02-28] MEDS: CARBIDOPA-LEVODOPA 25-100 MG 1 EACH TAB PO SCH ×3 (08:48→17:33)
[2020-02-28] MEDS: MULTIVITAMINS, THERA 1 EACH TAB PO SCH (08:48)
[2020-02-28] MEDS: METOPROLOL SUCCINATE (ER) 25 MG TAB.ER.24H PO SCH (08:48)
[2020-02-28] MEDS: HEPARIN SODIUM,PORCINE 5,000 UNIT/ML 1 ML VIAL SQ SCH ×2 (08:48→20:25)
[2020-02-28] MEDS: FOLIC ACID 1 MG TAB PO SCH (08:49)
[2020-02-28] MEDS: RILUZOLE PO SCH (08:49)
[2020-02-28] MEDS: ATORVASTATIN 40 MG TAB PO SCH (17:33)
--- NOTE | 2020-02-29 02:07 | PN ---
PROGRESS NOTE DATE OF SERVICE: 02/28/2020 This 79-year-old gentleman admitted with a fall also had parkinsonian acute exacerbation. Patient also had severe gait dysfunction. Patient also had some renal failure. No chest pain. No palpitations. No fever. Orthopedics following the patient closely. PHYSICAL EXAMINATION: On exam, alert and oriented x2. Pulse blood pressure 105/64, respirations 16, temperature 98.4, pulse ox 95% on room air. HEENT: Conjunctivae normal. NECK: No jugular venous distention. CARDIOVASCULAR: S1, S2 muffled. RESPIRATORY: Breath sounds diminished at the bases. A few scattered rhonchi. ABDOMEN: Soft, nontender. NERVOUS SYSTEM: Diffusely weak and tremors. LABS: WBC 7.4, hemoglobin 11.4. Otherwise, calcium is 8.2. ASSESSMENT: 1. Syncope, fall, possibly acute parkinsonian exacerbation. 2. Severe gait dysfunction. 3. Rule out cardiac arrhythmia. 4. Increased creatinine with acute renal failure with prerenal acute tubular necrosis with dehydration, present on admission. 5. Anemia, normocytic possibly nutritional. 6. History of dementia. 7. Hypertension. 8. Hyperlipidemia. 9. Dislocation of the middle phalanx of the 3rd and 4th digit, reduced. 10.Coronary artery disease, stent. 11.History of pacemaker. 12.History of automated implantable cardioverter-defibrillator. 13.NO CODE, NO CPR, NO VENT. RECOMMENDATIONS AND DISCUSSION: Recommend to continue current medications, continue symptomatic treatment. Otherwise at this time I would recommend closely follow with Neurology. PT, OT evaluation. Consider ECF rehab. X-rays reviewed. Orthopedics note appreciated. Further recommendations to follow. MMODL / IJN: [id number] /
[2020-02-29] MEDS: SODIUM CHLORIDE 0.9% 1,000 ML IV SCH (04:44)
[2020-02-29] MEDS: LEVOTHYROXINE 25 MCG TAB PO SCH (05:17)
[2020-02-29] MEDS: MULTIVITAMINS, THERA 1 EACH TAB PO SCH (08:58)
[2020-02-29] MEDS: PANTOPRAZOLE 40 MG TABLET PO SCH (08:59)
[2020-02-29] MEDS: DONEPEZIL 10 MG TAB PO SCH (08:59)
[2020-02-29] MEDS: FOLIC ACID 1 MG TAB PO SCH (08:59)
[2020-02-29] MEDS: ASPIRIN 81 MG PO SCH (08:59)
[2020-02-29] MEDS: METOPROLOL SUCCINATE (ER) 25 MG TAB.ER.24H PO SCH (08:59)
[2020-02-29] MEDS: ASCORBIC ACID 500 MG TAB PO SCH (08:59)
[2020-02-29] MEDS: CLOPIDOGREL 75 MG TAB PO SCH (08:59)
[2020-02-29] MEDS: HEPARIN SODIUM,PORCINE 5,000 UNIT/ML 1 ML VIAL SQ SCH (08:59)
[2020-02-29] MEDS: THIAMINE 100 MG TAB PO SCH (08:59)
[2020-02-29] MEDS: CARBIDOPA-LEVODOPA 25-100 MG 1 EACH TAB PO SCH ×2 (08:59→12:02)
[2020-02-29] MEDS: TAMSULOSIN 0.4 MG CAP.ER.24H PO SCH (08:59)
[2020-02-29] MEDS: RILUZOLE PO SCH (10:10)
--- NOTE | 2020-02-29 13:46 | P.DS ---
Providers Date of admission: 02/26/20 11:09 Expected date of discharge: 02/29/20 Attending physician: Zen Vargas MD Consults: 02/25/20 16:50 Consult Physician Routine Consulting Provider: Felicita Oconnor Consult Reason/Comments: malignancy Do you want consulting provider notified?: Yes Consult Physician Routine Consulting Provider: Ada Trevizo Consult Reason/Comments: syncope Do you want consulting provider notified?: Yes 02/25/20 17:23 Consult Physician Routine Consulting Provider: Mayur Davis Consult Reason/Comments: dislocation of phalanx Do you want consulting provider notified?: Yes Primary care physician: [facility] Course: Final diagnosis Syncope, fall, possibly acute parkinsonian exacerbation Severe gait dysfunction Rule out cardiac arrhythmia Increased creatinine with acute renal failure with prerenal acute tubular necrosis with dehydration, present on admission Anemia, normocytic possibly nutritional History of dementia Hypertension Hyperlipidemia Dislocation of the right middle phalanx of the third and fourth digit, reduced Coronary artery disease, stent History of pacemaker History of automated implantable cardioverter defibrillator No code, no CPR, no vent Discharge disposition Patient is being discharged in a stable condition with guarded prognosis to [facility] for continued PT/OT therapy. Patient will follow-up with Dr. Huffman upon discharge. Total time taken is greater than 35 minutes. History of present illness This is an 79-year-old male who was recently admitted with a fall and also parkinsonian acute exacerbation and was being closely monitored. Patient continues to have severe gait dysfunction requiring continued PT/OT therapy at an [facility]. Patient was also found to have acute renal failure. Current creatinine today is 0.91. Orthopedic surgery evaluated the patient and recommending javier taping the digits and outpatient follow-up with orthopedic surgery once discharged. Patient was being evaluated by physical therapy and recommending subacute rehab. Patient will be going to [facility] today for continued strength and mobility. Currently no reports of chest pain, shortness of breath, or palpitations. Patient is afebrile. No reports of nausea or vomiting and patient is tolerating diet. Patient will be going to [facility] for continued PT/OT therapy for strength and mobility today. Guarded prognosis. On exam vital signs are stable. Temp is 99.3F, pulse is 65, respirations are 20, blood pressure is 138/67, oxygen saturation is 95% on 2 L via nasal cannula. Cardio S1, S2 are muffled. Respiratory shows diminished breath sounds at the bases with a few scattered rhonchi noted. Abdomen is soft and nontender. Nervous system shows mild diffuse weakness. Please refer to medication reconciliation sheet for a list of medications. Patient Condition at Discharge: Fair Plan - Discharge Summary Discharge Rx Participant: No New Discharge Prescriptions: New Folic Acid 1 mg PO DAILY@1200 tab Pantoprazole [Protonix] 40 mg PO AC-BRKFST tablet. Thiamine [Vitamin B-1] 100 mg PO DAILY@1200 tab Continue Riluzole [Rilutek] 100 mg PO DAILY Tamsulosin HCl [Flomax] 0.4 mg PO DAILY Metoprolol Succinate (ER) [Toprol XL] 25 mg PO DAILY Donepezil HCl [Aricept] 10 mg PO DAILY Levothyroxine Sodium 25 mcg PO DAILY Aspirin 81 mg PO DAILY #30 chew Nitroglycerin Sl Tabs [Nitrostat] 0.4 mg SUBLINGUAL Q5M PRN #25 tab PRN Reason: Chest Pain Clopidogrel [Plavix] 75 mg PO DAILY #30 tab Ascorbic Acid [Vitamin C] 1,000 mg PO DAILY 30 Days #30 tab Multivitamins, Thera [Multivitamin (formulary)] 1 tab PO DAILY Carbidopa-Levodopa 25-100 mg [Sinemet 25-100 mg] 1.5 tab PO AC-TID Atorvastatin Calcium [Lipitor] 40 mg PO W/SUPPER Discontinued Losartan [Cozaar] 25 mg PO HS #30 tab Discharge Medication List Donepezil HCl [Aricept] 10 mg PO DAILY 02/21/19 [History] Metoprolol Succinate (ER) [Toprol XL] 25 mg PO DAILY 02/21/19 [History] Riluzole [Rilutek] 100 mg PO DAILY 02/21/19 [History] Tamsulosin HCl [Flomax] 0.4 mg PO DAILY 02/21/19 [History] Levothyroxine Sodium 25 mcg PO DAILY 12/15/19 [History] Ascorbic Acid [Vitamin C] 1,000 mg PO DAILY 30 Days #30 tab 12/17/19 [Rx] Aspirin 81 mg PO DAILY #30 chew 12/17/19 [Rx] Clopidogrel [Plavix] 75 mg PO DAILY #30 tab 12/17/19 [Rx] Nitroglycerin Sl Tabs [Nitrostat] 0.4 mg SUBLINGUAL Q5M PRN #25 tab 12/17/19 [Rx] Atorvastatin Calcium [Lipitor] 40 mg PO W/SUPPER 02/25/20 [History] Carbidopa-Levodopa 25-100 mg [Sinemet 25-100 mg] 1.5 tab PO AC-TID 02/25/20 [History] Multivitamins, Thera [Multivitamin (formulary)] 1 tab PO DAILY 02/25/20 [History] Folic Acid 1 mg PO DAILY@1200 tab 02/29/20 [Rx] Pantoprazole [Protonix] 40 mg PO AC-BRKFST tablet. 02/29/20 [Rx] Thiamine [Vitamin B-1] 100 mg PO DAILY@1200 tab 02/29/20 [Rx] Follow up Appointment(s)/Referral(s): Issa Lennon MD [STAFF PHYSICIAN] - 2 Weeks Ben Arriaga III, MD [Primary Care Provider] - 1-2 days Myaur Davis DO [Medical Doctor] - 1 Week Activity/Diet/Wound Care/Special Instructions: Patient going to [facility] Activity as tolerated Continue current diet Continue with physical therapy/occupational therapy Follow-up with orthopedics in the outpatient setting Follow-up with neurology in the outpatient setting Maintain javier loops. May remove for skin checks and hygiene. [facility]. Call with any questions or concerns. [phone]. Discharge Disposition: TRANSFER TO SNF/ECF
[2020-02-29 15:17] VITALS: BP 123/65; PULSE 69; RESP 16; TEMP 98.7
== END 2020-02-29 15:40 | DRG 56 ==
LOC: EC 06:12 → 5NMEDONC 10:12 → 4SSUR 20:23 → OBSVTOIN 02-26 11:09
PROVIDERS: ADMIT Internal Medicine; ATTEND Internal Medicine
PROC: 0PSTXZZ Reposition Right Finger Phalanx, External Approach (ICD-10-PCS; principal; 2020-02-25)
DX: G20 Parkinson's disease (principal); N17.0 Acute kidney failure with tubular necrosis; G12.21 Amyotrophic lateral sclerosis; D53.9 Nutritional anemia, unspecified; E78.5 Hyperlipidemia, unspecified; E86.0 Dehydration; F02.80 Dementia in other diseases classified elsewhere, unspecified severity, without behavioral disturbance, psychotic disturbance, mood disturbance, and anxiety; I10 Essential (primary) hypertension; I25.2 Old myocardial infarction; I25.10 Atherosclerotic heart disease of native coronary artery without angina pectoris; I48.0 Paroxysmal atrial fibrillation; R29.6 Repeated falls; S63.252A Unspecified dislocation of right middle finger, initial encounter; S63.254A Unspecified dislocation of right ring finger, initial encounter; W19.XXXA Unspecified fall, initial encounter; Z79.02 Long term (current) use of antithrombotics/antiplatelets; Z79.82 Long term (current) use of aspirin; Z79.890 Hormone replacement therapy; Z79.899 Other long term (current) drug therapy; Z82.0 Family history of epilepsy and other diseases of the nervous system; Z95.810 Presence of automatic (implantable) cardiac defibrillator; Z95.5 Presence of coronary angioplasty implant and graft; Z11.59 Encounter for screening for other viral diseases; Z79.01 Long term (current) use of anticoagulants; Z66 Do not resuscitate
CPT/HCPCS: 26770; 36415; 70450; 71045; 72070; 72125; 72170; 80048; 80053; 81003; 82550; 83605; 83735; 84484; 85025; 85610; 85730; 93306; 93880; 96360; 96361; 99285